=== PATIENT | female | born 1950 | race Caucasian/White ===

== ENCOUNTER 2024-08-04 07:45 | Day surgery (SDC) | payer MEDICARE, OTHER, SELFPAY ==
--- OUTSIDE RECORDS SUMMARY | 2024-07-14 11:43 | XMS_ITS | Encounter Summary ---
Author Organization [facility] Address [address] [facility] [address] [place] [address] Phone Care Team Providers Care Bronze Plater Name Role Phone Thais Wiggins MD, PhD Unavailable [phone] Lucia Canchola MD Unavailable [phone] Self-Referred, Patient Unavailable Unavailab Barak Torres DO Primary Care Provider [phone] Link Osorio MD Unavailable [phone] Marycarmen Samaniego RN Unavailable Catherine [email or web address] Self-Referred, Patient Unavailable Unavailab Danielle Rivas RN Unavailable [email or web address] Barak Hunt DO Primary Care Provider [phone] Geovany Ortez MD Primary Care Provid er Encounter Details Date Type Department Care Team (Late st Contact Info) Description 04/21/2019 Prep for Surgery [place] [facility] 20 [facility] [address] [place] [address] Olivia Schroeder PA-C [address] [phone] [email or web address] Left inguinal hernia (Primary Dx) Social History Tobacco Use Types Packs/Day Years Used Date Smoking Tobacco: Former Cigarettes 1 30 0 02/25/1977 - 02/25/2007 Smokeless Tobacco: Never Alcohol Use Standard Drinks/Week Comments No 0 (1 standard drink = 0.6 oz pur e alcohol) Comments Unknown Sex and Gender Information Value Date Recorded Sex Assigned at Female 08/21/2017 6:55 AM EDT Legal Sex Female 2:32 PM EDT Gender Identity Female 08/21/2017 6:55 AM EDT Sexual Orientation Straight 08/21/2017 6: 55 AM EDT 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, 7th Floor, [address] [place] [address] Mariana Ceballos MD [address] [place] [address] [email or web address] Link Osorio MD 10 [facility] [place] [address] TORY@[email or web address] 06/29/2025 10:00 AM EDT Office Visit [facility] Endocrinology [address] [phone] Zari Genao MD [address] [facility] 3rd [place] [address] [email or web address] documented as of this encounter Visit Diagnoses Diagnosis Left inguinal hernia- Primary Inguinal hernia without mention of obstruction or gangrene, unilateral or unspecified, (not specified as recurrent) documented in this encounter Additional Health Concerns Infection Onset Date Last Indicated Resolved Time CoV-Risk 11/05/2020 11/05/2020 11/15/2020 1:22 AM EDT CoV-Exposed Comment:Recent close contact documented in the COVID-19 PCR/PRO order 09/09/2021 09/09/2021 09/20/2021 1:22 AM E DT CoV-Risk 11/17/2021 11/17/2021 11/17/2021 10:4 1 AM EDT COVID-19 11/17/2021 11/17/2021 12/08/2021 1:21 AM EDT CoV-Risk Comment:Per note documentation 07/24/2022 07/24/2022 8:24 AM EDT documented as of this encounter Care Teams Bronze Plater Relationship Specialty Start Date End Date Barak Hunt DO 22 [place] [address] @[facility] [place] PCP - General Family Medicine 02/10/18 10/22/23 Barak Hunt DO 22 [place] [address] [email or web address] PCP - General Family Medicine 10/23/23 06/28/24 Geovany Ortez MD [address] [place] [phone] PCP - General Internal Medicine 06/29/24 Thais Wiggins MD, PhD [email or web address]. [place] Thoracic Surgery 09/25/17 Lucia Canchola MD [address] [place] [address] [email or web address] Hematology and Oncology 09/25/17 12/04/21 Self-Referred, Patient 09/26/17 Link Osorio MD [address] [place] [address] [email or web address] Primary Oncologist Medical Oncology 01/24/22 Marycarmen Samaniego, ANDREW [address] [place] [address] [email or web address] Primary Infusion Nurse 01/24/22 12/18/22 Self-Referred, Patient 03/16/22 12/18/22 Danielle Gallegos RN [address] [place] [address] [email or web address] Primary Infusion Nurse 05/18/22 documented as of this encounter Additional Source Comments The information contained in this document represents components of the legal health record. It is not the complete legal health record.[facility]
--- OUTSIDE RECORDS SUMMARY | 2024-07-14 11:43 | XMS_ITS | Encounter Summary ---
Author Organization [facility] Address [address] [place] [address] Phone Care Team Providers Care Supervisor Color Making Name Role Phone Thais Wiggins MD, PhD Unavailable [phone] Self-Referred, Patient Unavailable Unavailab Barak Torres DO Primary Care Provider [phone] Link Osorio MD Unavailable [phone] Danielle Gallegos RN Unavailable [email or web address] Barak Hunt DO Primary Care Provider [phone] Geovany Ortez MD Primary Care Provid er Encounter Details Date Type Department Care Team (Late st Contact Info) Description 05/30/2023 Transcribe Orders [facility] Endocrinology [address] [place] [address] [place] [phone] Ana Luisa Mar MD [address] [place] [address] victor [email or web address] Social History Tobacco Use Types Packs/Day Years Used Date Smoking Tobacco: Former Cigarettes 1 20 0 02/25/1987 - 02/25/2007 Smokeless Tobacco: Never Alcohol Use Standard Drinks/Week Comments No 0 (1 standard drink = 0.6 oz pur e alcohol) Education Answer Date Recorded Are you interested in more education? Not on fabian e 06/22/2022 Are you concerned about learning? Not on file 06/22/2022 No 06/22/2022 No 06/22/2022 Digital Access Answer Date Recorded No 07/20/2022 No 07/20/2022 Reliable internet access at home? Not on file 07/20/2022 Device with a working camera? 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 Not on file Not on file documented as of this encounter Plan of Treatment Upcoming Encounters Date Type Department Care Team (Late st Contact Info) Description 07/09/2024 Procedure Pass [address] [address] 11/03/2024 10:30 AM EDT Appointment [address] [address] Mariana Ceballos MD [address] [place] [address] [email or web address] 11/19/2024 10:00 AM EDT Office [facility] [address] [place] [address], 7th Floor, [address] [place] [address] Mariana Ceballos MD [address] [place] [address] [email or web address] Link Osorio MD [address] [place] [address] [facility] [place] [address] TORY@[email or web address] 06/29/2025 10:00 AM EDT Office Visit [facility] Endocrinology [address] [address] Zari Genao MD [address] [address] [email or web address] documented as of this encounter Visit Diagnoses Not on filedocumented in this encounter Care Teams Supervisor Color Making Relationship Specialty Start Date End Date Barak Hunt DO 22 [place] [address] [email or web address] PCP - General Family Medicine 02/10/18 10/22/23 Barak Hunt DO [address] [place] [address] [email or web address] PCP - General Family Medicine 10/23/23 06/28/24 Geovany Ortez MD [address] [place] [phone] PCP - General Internal Medicine 06/29/24 Thais Wiggins MD, PhD [email or web address] Thoracic Surgery 09/25/17 Self-Referred, Patient 09/26/17 Link Osorio MD [address] [place] [address] [facility]-[address] [place] [address] [email or web address].[facility] Primary Oncologist Medical Oncology 01/24/22 Danielle Gallegos, RN [address] [place] [address] [email or web address] Primary Infusion Nurse 05/18/22 documented as of this encounter Additional Source Comments The information contained in this document represents components of the legal health record. It is not the complete legal health record.[facility]
--- OUTSIDE RECORDS SUMMARY | 2024-07-14 11:43 | XMS_ITS | Encounter Summary ---
Author Organization [facility] Address [address] [place] [address] Phone Care Team Providers Care Clock Assembler Name Role Phone Thais Wiggins MD, PhD Unavailable [phone] Self-Referred, Patient Unavailable Unavailab Barak Torres DO Primary Care Provider [phone] Link Osorio MD Unavailable [phone] Danielle Gallegos RN Unavailable [email or web address] @[email or web address] Barak Hunt DO Primary Care Provider Geovany Ortez MD Primary Care Provid er Encounter Details Date Type Department Care Team (Late st Contact Info) Description 04/19/2023 Procedure Pass [facility], Ct Scan - [address] [address] Social History Tobacco Use Types Packs/Day Years [...] 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, 7th Floor, [address] [place] [address] Mariana Ceballos MD [address] [place] [address] [email or web address] Link Osorio MD 10 [facility]-[address] [place] [address] TORY@[email or web address] 06/29/2025 10:00 AM EDT Office Visit [facility] Endocrinology [address] [phone] Zari Genao MD 22 [facility] 3rd [place] [address] [email or web address] documented as of this encounter Visit Diagnoses Not on filedocumented in this encounter Care Teams Clock Assembler Relationship Specialty Start Date End Date Barak Hunt DO 22 [place] [address] [email or web address] PCP - General Family Medicine 02/10/18 10/22/23 Barak Hunt DO 22 [place] [address] [email or web address] PCP - General Family Medicine 10/23/23 06/28/24 Geovany Ortez MD [address] [place] [phone] PCP - General Internal Medicine 06/29/24 Thais Wiggins MD, PhD [email or web address]@[email or web address] Thoracic Surgery 09/25/17 Self-Referred, Patient 09/26/17 Link Osorio MD [address] [place] [address] [address] TORY@[email or web address] Primary Oncologist Medical Oncology 01/24/22 Danielle Gallegos, ANDREW [address] [place] [address] [email or web address] Primary Infusion Nurse 05/18/22 documented as of this encounter Additional Source Comments The information contained in this document represents components of the legal health record. It is not the complete legal health record.[facility]
--- OUTSIDE RECORDS SUMMARY | 2024-07-14 11:43 | XMS_ITS | Encounter Summary ---
Author Organization [facility] Address [address] [place] [address] Phone Care Team Providers Care Cost And Risk Analysis Manager Name Role Phone Thais Wiggins MD, PhD Unavailable [phone] Self-Referred, Patient Unavailable Unavailab Barak Torres DO Primary Care Provider [phone] Link Osorio MD Unavailable [phone] aMrycarmen Samaniego RN Unavailable Catherine [email or web address] Self-Referred, Patient Unavailable Unavailab Danielle Rivas RN Unavailable martin @[email or web address] Barak Hunt DO Primary Care Provider [phone] Geovany Ortez MD Primary Care Provid er Encounter Details Date Type Department Care Team (Late st Contact Info) Description 12/27/2021 Procedure Pass [facility] PERIOPER[facility]IVE DEPT [address] [place] [address] Social History Tobacco Use Types Packs/Day Years Used Date Smoking Tobacco: Former Cigarettes 1 20 0 02/25/1987 - 02/25/2007 Smokeless Tobacco: Never Alcohol Use Standard Drinks/Week Comments No 0 (1 standard drink = 0.6 oz pur e alcohol) Comments No Sex and Gender Information Value Date Recorded Sex Assigned at Female 08/21/2017 6:55 AM EDT Legal Sex Female 2:32 PM EDT Gender Identity Female 08/21/2017 6:55 AM EDT Sexual Orientation Straight 08/21/2017 6: 55 AM EDT 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 Not on file Not on file documented as of this encounter Plan of Treatment Upcoming Encounters Date Type Department Care Team (Late st Contact Info) Description 07/09/2024 Procedure Pass [facility], [address] [address] 11/03/2024 10:30 AM EDT Appointment [address] [address] Mariana Ceballos MD [address] [place] [address] [email or web address] 11/19/2024 10:00 AM EDT Office Visit [facility] for Thoracic Oncology [address] [place] [address], 7th Floor, [address] [place] [address] Mariana Ceballos MD [address] [place] [address] [email or web address] Link Osorio MD 10 [facility]-[address] [place] [address] TORY@[email or web address] 06/29/2025 10:00 AM EDT Office Visit [facility] Endocrinology [address] [phone] Zari Genao MD 22 [facility] 3rd [place] [address] [email or web address] documented as of this encounter Visit Diagnoses Not on filedocumented in this encounter Additional Health Concerns Infection Onset Date Last Indicated Resolved Time CoV-Risk Comment:Per note documentation 07/24/2022 07/24/2022 8:24 AM EDT documented as of this encounter Care Teams Cost And Risk Analysis Manager Relationship Specialty Start Date End Date Gilbert Barak DO Mily 22 [place] [address] [email or web address] PCP - General Family Medicine 02/10/18 10/22/23 Barak Hunt DO 22 [place] [address] [email or web address] PCP - General Family Medicine 10/23/23 06/28/24 Geovany Ortez MD [address] [place] [phone] PCP - General Internal Medicine 06/29/24 Thais Wiggins MD, PhD [email or web address]@[email or web address].[place] Thoracic Surgery 09/25/17 Self-Referred, Patient 09/26/17 Link Osorio MD [address] [place] [address] [address] TORY@[facility].[place] Primary Oncologist Medical Oncology 01/24/22 Marycarmen Samaniego, ANDREW [address] [place] [address] [address] [email or web address] [email or web address] Primary Infusion Nurse 01/24/22 12/18/22 Self-Referred, Patient 03/16/22 12/18/22 Danielle Gallegos, ANDREW [address] [place] [address] [email or web address] Primary Infusion Nurse 05/18/22 documented as of this encounter Additional Source Comments The information contained in this document represents components of the legal health record. It is not the complete legal health record.[facility]
--- OUTSIDE RECORDS SUMMARY | 2024-07-14 11:43 | XMS_ITS | Encounter Summary ---
Author Organization [facility] Address [address] [place] [address] Phone Care Team Providers Care Compensation Supervisor Name Role Phone Thais Wiggins MD, PhD Unavailable [phone] Self-Referred, Patient Unavailable Unavailab Barak Torres DO Primary Care Provider [phone] Link Osorio MD Unavailable [phone] Marycarmen Samaniego RN Unavailable Catherine [email or web address] Self-Referred, Patient Unavailable Unavailab Danielle Rivas RN Unavailable [email or web address] @[email or web address] Barak Hunt DO Primary Care Provider [phone] Geovany Ortez MD Primary Care Provid er Encounter Details Date Type Department Care Team (Late st Contact Info) Description 03/29/2022 Procedure Pass [facility], Ct Scan - [address] [address] Social History Tobacco Use Types Packs/Day Years [...] 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 Not on file Not on file documented as of this encounter Plan of Treatment Upcoming Encounters Date Type Department Care Team (Late st Contact Info) Description 07/09/2024 Procedure Pass [facility], [address] [address] 11/03/2024 10:30 AM EDT Appointment [address] [address] Mariana Ceballos MD [address] [place] [address] [address] [place] [address] [email or web address] 11/19/2024 10:00 AM EDT Office [place] [facility] Center for Thoracic Oncology [address] [place] [address], 7th Floor, [address] [place] [address] Mariana Ceballos MD [address] [place] [address] [email or web address] Link Osorio MD 10 [facility] Thor[facility] OncologyMIN[facility]-[address] [place] [address] TORY@[facility] 06/29/2025 10:00 AM EDT Office Visit [facility] Endocrinology [place] [address] [place] [address] Zari Genao MD 22 [facility] 3rd [place] [address] [email or web address] documented as of this encounter Visit Diagnoses Not on filedocumented in this encounter Additional Health Concerns Infection Onset Date Last Indicated Resolved Time CoV-Risk Comment:Per note documentation 07/24/2022 07/24/2022 8:24 AM EDT documented as of this encounter Care Teams Compensation Supervisor Relationship Specialty Start Date End Date Barak Hunt DO 22 [place] [address] @[email or web address] PCP - General Family Medicine 02/10/18 10/22/23 Barak Hunt DO 22 [place] [address] @[facility] PCP - General Family Medicine 10/23/23 06/28/24 Geovany Ortez MD [address] [place] [phone] PCP - General Internal Medicine 06/29/24 Thais Wiggins MD, PhD [email or web address] Thoracic Surgery 09/25/17 Self-Referred, Patient 09/26/17 Link Osorio MD [address] [place] [address] [address] TORY@[facility] Primary Oncologist Medical Oncology 01/24/22 Marycarmen Samaniego, RN [address] [place] [address] [address] [email or web address] [place] Primary Infusion Nurse 01/24/22 12/18/22 Self-Referred, Patient 03/16/22 12/18/22 Danielle Gallegos, ANDREW [address] [place] [address] [email or web address] Primary Infusion Nurse 05/18/22 documented as of this encounter Additional Source Comments The information contained in this document represents components of the legal health record. It is not the complete legal health record.[facility]
--- OUTSIDE RECORDS SUMMARY | 2024-07-14 11:43 | XMS_ITS | Encounter Summary ---
Author Organization [facility] Address [address] [place] [address] Phone Care Team Providers Care Cloth Worker Name Role Phone Thais Wiggins MD, PhD Unavailable [phone] Self-Referred, Patient Unavailable Unavailab Barak Torres DO Primary Care Provider [phone] Link Osorio MD Unavailable [phone] Marycarmen Samaniego RN Unavailable [email or web address].[place] Self-Referred, Patient Unavailable Unavailab Danielle Rivas RN Unavailable [email or web address] Barak Hunt DO Primary Care Provider [phone] Geovany Ortez MD Primary Care Provid er Encounter Details Date Type Department Care Team (Late st Contact Info) Description 12/17/2022 Ancillary Orders [facility],Outside Imaging [address] [place] [address] System, Provider Not In, PhD Partners [address] [address] Social History Tobacco Use Types Packs/Day Years [...] 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 Not on file Not on file documented as of this encounter Plan of Treatment Upcoming Encounters Date Type Department Care Team (Late st Contact Info) Description 07/09/2024 Procedure Pass [address] [address] 11/03/2024 10:30 AM EDT Appointment [address] [address] Mariana Ceballos MD [address] [place] [address] [email or web address] 11/19/2024 10:00 AM EDT Office Visit [facility] [address] [place] [address], 7th Floor, [address] [place] [address] Mariana Ceballos MD [address] [place] [address] [email or web address] Link Osorio MD 10 [facility] [place] [address] [email or web address] 06/29/2025 10:00 AM EDT Office Visit [facility] Endocrinology [address] [address] Zari Genao MD [address] [place] [address] 3[address] [place] [address] [email or web address] documented as of this encounter Results * DXA Outside (No Interpretation) (04/10/2018 12:00 AM EST) Narrative SYSTEMGENERATED, DOCUMENTATION - 12/17/2022 4:50 PM EDT This study is for PACS storage only and not for interpretation. us Provider Not In System PhD IMG OUTSIDE IMAGING W /OUT INTERPRETATION Final Result documented in this encounter Visit Diagnoses Not on filedocumented in this encounter Care Teams Cloth Worker Relationship Specialty Start Date End Date Barak Hunt DO [address] [place] [address] [email or web address] PCP - General Family Medicine 02/10/18 10/22/23 Barak Hunt DO [address] [place] [address] [email or web address] PCP - General Family Medicine 10/23/23 06/28/24 Geovany Ortez MD [address] [place] [phone] PCP - General Internal Medicine 06/29/24 Thais Wiggins MD, PhD [email or web address] Thoracic Surgery 09/25/17 Self-Referred, Patient 09/26/17 Link Osorio MD [address] [place] [address] [facility]-[address] [place] [address] [email or web address].[email or web address] Primary Oncologist Medical Oncology 01/24/22 Marycarmen Samaniego, RN 10 [facility] Thoracic Oncology[address] [address] [email or web address].[place]. [place] Primary Infusion Nurse 01/24/22 12/18/22 Self-Referred, Patient 03/16/22 12/18/22 Danielle Galleogs RN [address] [place] [address] [email or web address] Primary Infusion Nurse 05/18/22 documented as of this encounter Additional Source Comments The information contained in this document represents components of the legal health record. It is not the complete legal health record.[facility]
--- OUTSIDE RECORDS SUMMARY | 2024-07-14 11:44 | XMS_ITS | Encounter Summary ---
Author Organization [facility] Address [address] [place] [address] Phone Care Team Providers Care Marketing Services Rep Name Role Phone Thais Wiggins MD, PhD Unavailable [phone] Self-Referred, Patient Unavailable Unavailab Barak Torres DO Primary Care Provider [phone] Link Osorio MD Unavailable [phone] Marycarmen Samaniego RN Unavailable Catherine [email or web address] Self-Referred, Patient Unavailable Unavailab Danielle Rivas RN Unavailable [email or web address] Barak Hunt DO Primary Care Provider [phone] Geovany Ortez MD Primary Care Provid er Encounter Details Date Type Department Care Team (Late st Contact Info) Description 01/24/2022 Procedure Pass [facility] [address] [place] [address] Social History Tobacco Use Types Packs/Day Years [...] 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 Not on file Not on file documented as of this encounter Plan of Treatment Upcoming Encounters Date Type Department Care Team (Late st Contact Info) Description 07/09/2024 Procedure Pass [facility], [address] [address] 11/03/2024 10:30 AM EDT Appointment [address] [address] Mariana Ceballos MD [address] [place] [address] [email or web address] 11/19/2024 10:00 AM EDT Office Visit [facility] [address] [place] [address], 7th Floor, [address] [place] [address] Mariana Ceballos MD [address] [place] [address] [email or web address] Link Osorio MD 10 [facility]-[address] [place] [address] TORY@[email or web address] 06/29/2025 10:00 AM EDT Office Visit [facility] Endocrinology [address] [phone] Zari Genao MD 22 [facility] 3rd [place] [address] [email or web address] documented as of this encounter Visit Diagnoses Not on filedocumented in this encounter Additional Health Concerns Infection Onset Date Last Indicated Resolved Time CoV-Risk Comment:Per note documentation 07/24/2022 07/24/2022 8:24 AM EDT documented as of this encounter Care Teams Marketing Services Rep Relationship Specialty Start Date End Date Gilbert Barak DO Mily [address] [place] [address] [email or web address] PCP - General Family Medicine 02/10/18 10/22/23 Barak Hunt DO [address] [place] [address] [email or web address] PCP - General Family Medicine 10/23/23 06/28/24 Geovany Ortez MD [address] [place] [phone] PCP - General Internal Medicine 06/29/24 Thais Wiggins MD, PhD [email or web address]@[email or web address] Thoracic Surgery 09/25/17 Self-Referred, Patient 09/26/17 Link Osorio MD [address] [place] [address] [address] TORY@[facility].[facility] Primary Oncologist Medical Oncology 01/24/22 Marycarmen Samaniego, ANDREW [address] [place] [address] [address] [email or web address]. [place] Primary Infusion Nurse 01/24/22 12/18/22 Self-Referred, Patient 03/16/22 12/18/22 Danielle Gallegos, ANDREW [address] [place] [address] [email or web address] Primary Infusion Nurse 05/18/22 documented as of this encounter Additional Source Comments The information contained in this document represents components of the legal health record. It is not the complete legal health record.[facility]
--- OUTSIDE RECORDS SUMMARY | 2024-07-14 11:44 | XMS_ITS | Encounter Summary ---
Author Organization [facility] Address [address] [place] [address] Phone Care Team Providers Care Solid Waste Collection Worker Name Role Phone Jan Das MD Unavailable [phone] Thais Wiggins MD, PhD Unavailable [phone] Lucia Canchola MD Unavailable [phone] Self-Referred, Patient Unavailable Unavailab Barak Torres DO Primary Care Provider [phone] Link Osorio MD Unavailable [phone] Marycarmen Samaniego RN Unavailable Catherine [email or web address] Self-Referred, Patient Unavailable Unavailab Danielle Rivas RN Unavailable [email or web address] Barak Hunt DO Primary Care Provider Geovany Ortez MD Primary Care Provid er Encounter Details Date Type Department Care Team (Late st Contact Info) Description 08/16/2017 Procedure Pass [facility] [address] [place] [address] Social History Tobacco Use Types Packs/Day Years Used Date Smoking Tobacco: Never Assessed Comments Unknown Sex and Gender Information Value Date Recorded Sex Assigned at Female 08/21/2017 6:55 AM EDT Legal Sex Female 2:32 PM EDT Gender Identity Female 08/21/2017 6:55 AM EDT Sexual Orientation Straight 08/21/2017 6: 55 AM EDT documented as of this encounter Plan of Treatment Upcoming Encounters Date Type Department Care Team (Late st Contact Info) Description 07/09/2024 Procedure Pass [facility], [address] [address] 11/03/2024 10:30 AM EDT Appointment [address] [address] Mariana Ceballos MD [address] [place] [address] [email or web address] 11/19/2024 10:00 AM EDT Office Visit [facility] for Thoracic Oncology [address] [place] [address], 7th Floor, [address] [place] [address] Mariana Ceballos MD [address] [place] [address] [email or web address] Link Osorio MD 10 [facility] [place] [address] [email or web address] 06/29/2025 10:00 AM EDT Office Visit [facility] Endocrinology [address] [address] Zari Genao MD [address] [place] [address] 3[address] [place] [address] [email or web address] documented as of this [...] documented as of this encounter Care Teams Solid Waste Collection Worker Relationship Specialty Start Date End Date Barak Hunt DO [address] [place] [address] [email or web address] PCP - General Family Medicine 02/10/18 10/22/23 Barak Hunt DO 22 [place] [address] @[email or web address] PCP - General Family Medicine 10/23/23 06/28/24 Geovany Ortez MD [address] [place] [phone] PCP - General Internal Medicine 06/29/24 Jan Das MD [address] [place] [address] [email or web address] Thoracic Surgery 08/13/17 09/24/17 Thais Wiggins MD, PhD [address] [place] [address] [email or web address]. [facility] Thoracic Surgery 09/25/17 Lucia Canchola MD [address] [place] [address] [email or web address] Hematology and Oncology 09/25/17 12/04/21 Self-Referred, Patient 09/26/17 Link Osorio MD [address] [place], [place] [phone] [email or web address] Primary Oncologist Medical Oncology 01/24/22 Marycarmen Samaniego, RN [address] [place], [place] [phone] [email or web address] Primary Infusion Nurse 01/24/22 12/18/22 Self-Referred, Patient 03/16/22 12/18/22 Danielle Gallegos, RN [address] [place], [place] [phone] [email or web address] Primary Infusion Nurse 05/18/22 documented as of this encounter Additional Source Comments The information contained in this document represents components of the legal health record. It is not the complete legal health record.[facility]
--- OUTSIDE RECORDS SUMMARY | 2024-07-14 11:44 | XMS_ITS | Encounter Summary ---
Author Organization [facility] Address [address] [place] [address] [place] [address] Phone Care Team Providers Care Nail Polish Brush Machine Feeder Name Role Phone Thais Wiggins MD, PhD Unavailable [phone] Self-Referred, Patient Unavailable Unavailab Barak Torres DO Primary Care Provider [phone] Link Osorio MD Unavailable [phone] Marycarmen Samaniego RN Unavailable Catherine [email or web address] Self-Referred, Patient Unavailable Unavailab Danielle Rivas RN Unavailable [email or web address] Barak Hunt DO Primary Care Provider [phone] Geovany Ortez MD Primary Care Provid er Reason for Visit * Reason Comments Medication Refill Encounter Details Date Type Department Care Team (Late st Contact Info) Description 04/13/2022 Refill [facility] 32 [facility], 7th Floor, [address] [place] [address] Janine Quinones, CLINICAL DATA MANAGEMENT DIRECTOR [address] [place] [address] [email or web address] Medication Refill Social History Tobacco Use Types Packs/Day Years [...] 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 Not on file Not on file documented as of this encounter Plan of Treatment Upcoming Encounters Date Type Department Care Team (Late st Contact Info) Description 07/09/2024 Procedure Pass [address] [address] 11/03/2024 10:30 AM EDT Appointment [address] [address] Mariana Ceballos MD [address] [place] [address] [email or web address] 11/19/2024 10:00 AM EDT Office Visit [facility] [address] [place] [address], 7th Floor, [address] [place] [address] Mariana Ceballos MD [address] [place] [address] [email or web address] Link Osorio MD [address] [place] [address] [facility] [place] [address] [email or web address] 06/29/2025 10:00 AM EDT Office Visit [facility] Endocrinology [address] [address] Zari Genao MD [address] [place] [address] [address] [place] [address] [email or web address] documented as of this encounter Visit Diagnoses Diagnosis Non-small cell lung cancer, unspecified laterality documented in this encounter Additional Health Concerns Infection Onset Date Last Indicated Resolved Time CoV-Risk Comment:Per note documentation 07/24/2022 07/24/2022 8:24 AM EDT documented as of this encounter Care Teams Nail Polish Brush Machine Feeder Relationship Specialty Start Date End Date Barak Hunt DO [address] [place] [address] [email or web address] PCP - General Family Medicine 02/10/18 10/22/23 Barak Hunt DO [address] [place] [address] @[email or web address] PCP - General Family Medicine 10/23/23 06/28/24 Geovany Ortez MD [address] [place] [phone] PCP - General Internal Medicine 06/29/24 Thais Wiggins MD, PhD [email or web address] Thoracic Surgery 09/25/17 Self-Referred, Patient 09/26/17 Link Osorio MD [address] [place] [address] [email or web address] Primary Oncologist Medical Oncology 01/24/22 Marycarmen Samaniego, ANDREW [address] [place] [address] [email or web address].[place].[facility] Primary Infusion Nurse 01/24/22 12/18/22 Self-Referred, Patient 03/16/22 12/18/22 Danielle Gallegos, RN [address] [place] [address] [email or web address] Primary Infusion Nurse 05/18/22 documented as of this encounter Additional Source Comments The information contained in this document represents components of the legal health record. It is not the complete legal health record.[facility]
--- OUTSIDE RECORDS SUMMARY | 2024-07-14 11:44 | XMS_ITS | Encounter Summary ---
Author Organization [facility] Address [address] [place] [address] Phone Care Team Providers Care Block Sealer Name Role Phone Thais Wiggins MD, PhD Unavailable [phone] Self-Referred, Patient Unavailable Unavailab Barak Torres DO Primary Care Provider [phone] Link Osorio MD Unavailable [phone] Marycarmen Samaniego RN Unavailable Catherine 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 Not on file Not on file documented as of this encounter Plan of Treatment Upcoming Encounters Date Type Department Care Team (Late st Contact Info) Description 07/09/2024 Procedure Pass [facility], [address] [address] 11/03/2024 10:30 AM EDT Appointment [address] [address] Mariana Ceballos MD [address] [place] [address] [email or web address] 11/19/2024 10:00 AM EDT Office Visit [facility] Center for Thoracic Oncology [address] [place] [address], 7th Floor, [address] [place] [address] Mariana Ceballos MD [address] [place] [address] [email or web address] Link Osorio MD 10 [facility]-[address] [place] [address] [email or web address] 06/29/2025 10:00 AM EDT Office Visit [facility] Endocrinology [address] [phone] Zari Genao MD 22 [facility] 3rd [place] [address] [email or web address] documented as of this encounter Visit Diagnoses Not on filedocumented in this encounter Additional Health Concerns Infection Onset Date Last Indicated Resolved Time CoV-Risk Comment:Per note documentation 07/24/2022 07/24/2022 8:24 AM EDT documented as of this encounter Care Teams Block Sealer Relationship Specialty Start Date End Date Gilbert Barak DO Mily [address] [place] [address] [email or web address] PCP - General Family Medicine 02/10/18 10/22/23 Barak Hunt DO [address] [place] [address] [email or web address] PCP - General Family Medicine 10/23/23 06/28/24 Geovany Ortez MD [address] [place] [phone] PCP - General Internal Medicine 06/29/24 Thais Wiggins MD, PhD [email or web address] Thoracic Surgery 09/25/17 Self-Referred, Patient 09/26/17 Link Osorio MD [address] [place] [address] [address] TORY@[facility] Primary Oncologist Medical Oncology 01/24/22 Marycarmen Samaniego, ANDREW [address] [place] [address] [address] [email or web address].[place]. [place] Primary Infusion Nurse 01/24/22 12/18/22 Self-Referred, Patient 03/16/22 12/18/22 Danielle Gallegos, ANDREW [address] [place] [address] [email or web address] Primary Infusion Nurse 05/18/22 documented as of this encounter Additional Source Comments The information contained in this document represents components of the legal health record. It is not the complete legal health record.[facility]
--- OUTSIDE RECORDS SUMMARY | 2024-07-14 11:44 | XMS_ITS | Encounter Summary ---
Author Organization [facility] Address [address] [place] [address] Phone Care Team Providers Care Supply Chain Director Name Role Phone Thais Wiggins MD, PhD Unavailable [phone] Lucia Canchola MD Unavailable [phone] Self-Referred, Patient Unavailable Unavailab Barak Torres DO Primary Care Provider [phone] Link Osorio MD Unavailable [phone] Marycarmen Samaniego RN Unavailable Catherine [email or web address] Self-Referred, Patient Unavailable Unavailab Danielle Rivas RN Unavailable [email or web address] Barak Hunt DO Primary Care Provider [phone] Geovany Ortez MD Primary Care Provid er Encounter Details Date Type Department Care Team (Late st Contact Info) Description 11/05/2020 Procedure Pass [facility] [address] [place] [address] Social History Tobacco Use Types Packs/Day Years [...] Start Date Job 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 Wish to be (Past 1 Month) No 11/05/2020 12:27 PM EDT Pilar Granados, ANDREW 2. Non-Specific Active Suicidal Thoughts (Past 1 Month) No 11/05/2020 12:27 PM EDT Pilar Granados RN 6. Suicidal Behavior (Lifetime) No 11/05/2020 12:27 PM EDT Pilar Granados RN documented as of this encounter Plan of Treatment Upcoming Encounters Date Type Department Care Team (Late st Contact Info) Description 07/09/2024 Procedure Pass [address] [address] 11/03/2024 10:30 AM EDT Appointment [address] [address] Mariana Ceballos MD [address] [place] [address] [email or web address] 11/19/2024 10:00 AM EDT Office Visit [facility] [address] [place] [address], 7th Floor, [address] [place] [address] Mariana Ceballos MD [address] [place] [address] [email or web address] Link Osorio MD 10 [facility] [place] [address] [email or web address] [email or web address] 06/29/2025 10:00 AM EDT Office Visit [facility] Endocrinology [address] [phone] Zari Genao MD [address] [address] [email or web address] documented as of this encounter Visit Diagnoses [...] documented as of this encounter Care Teams Supply Chain Director Relationship Specialty Start Date End Date Barak Hunt DO 22 [place] [address] [email or web address] PCP - General Family Medicine 02/10/18 10/22/23 Barak Hunt DO 22 [place] [address] [email or web address] PCP - General Family Medicine 10/23/23 06/28/24 Geovany Ortez MD [address] [place] [phone] PCP - General Internal Medicine 06/29/24 Thais Wiggins MD, PhD [email or web address] Thoracic Surgery 09/25/17 Lucia Canchola MD [address] [place] [address] [email or web address] Hematology and Oncology 09/25/17 12/04/21 Self-Referred, Patient 09/26/17 Link Osorio MD [address] [place] [address] [email or web address] Primary Oncologist Medical Oncology 01/24/22 Marycarmen Samaniego, RN [address] [place] [address] [email or web address] Primary Infusion Nurse 01/24/22 12/18/22 Self-Referred, Patient 03/16/22 12/18/22 Danielle Gallegos, RN [address] [place] [address] [email or web address] Primary Infusion Nurse 05/18/22 documented as of this encounter Additional Source Comments The information contained in this document represents components of the legal health record. It is not the complete legal health record.[facility]
--- OUTSIDE RECORDS SUMMARY | 2024-07-14 11:44 | XMS_ITS | Encounter Summary ---
Author Organization [facility] Address [address] [place] [address] Phone Care Team Providers Care Transporter Driver Name Role Phone Thais Wiggins MD, PhD Unavailable [phone] Lucia Canchola MD Unavailable [phone] Self-Referred, Patient Unavailable Unavailab Barak Torres DO Primary Care Provider [phone] Link Osorio MD Unavailable [phone] Marycarmen Samaniego RN Unavailable 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 Not on file Not on file documented as of this encounter Plan of Treatment Upcoming Encounters Date Type Department Care Team (Late st Contact Info) Description 07/09/2024 Procedure Pass [facility], [facility] [address] [place] [address] 11/03/2024 10:30 AM EDT Appointment [address] [address] Mariana Ceballos MD [address] [place] [address] [email or web address] 11/19/2024 10:00 AM EDT Office Visit [facility] Oncology [address] [place] [address], 7th Floor, [address] [place] [address] Mariana Ceballos MD [address] [place] [address] [email or web address] Link Osorio MD 10 [facility] [place] [address] [email or web address] 06/29/2025 10:00 AM EDT Office Visit [facility] Endocrinology [place] [address] [place] [phone] Zari Genao MD 22 [facility] [address] [place] [address] [email or web address] documented as of this encounter Visit Diagnoses Not on filedocumented in this encounter Additional Health Concerns Infection Onset Date Last Indicated Resolved Time CoV-Risk 11/05/2020 11/05/202011/1511/15/2020 1:22 AM EDT CoV-Exposed Comment:Recent close contact documented in the COVID-19 PCR/PRO order 09/09/2021 09/09/2021 09/20/2021 1:22 AM E DT CoV-Risk 11/17/2021 11/17/2021 11/17/2021 10:4 1 AM EDT COVID-19 11/17/2021 11/17/2021 12/08/2021 1:21 AM EDT CoV-Risk Comment:Per note documentation 07/24/2022 07/24/2022 8:24 AM EDT documented as of this encounter Care Teams Transporter Driver Relationship Specialty Start Date End Date Barak Hunt DO [address] [place] [address] [email or web address] PCP - General Family Medicine 02/10/18 10/22/23 Barak Hunt DO [address] [place] [address] [email or web address] PCP - General Family Medicine 10/23/23 06/28/24 Geovany Ortez MD [address] [place] [phone] PCP - General Internal Medicine 06/29/24 Thais Wiggins MD, PhD [email or web address] DU Thoracic Surgery 09/25/17 Lucia Canchola MD [address] [place] [address] [email or web address] Hematology and Oncology 09/25/17 12/04/21 Self-Referred, Patient 09/26/17 Link Osorio MD [address] [place] [address] [address] [email or web address] Primary Oncologist Medical Oncology 01/24/22 Marycarmen Samaniego, ANDREW [address] [place] [address] [address] [email or web address] Primary Infusion Nurse 01/24/22 12/18/22 Self-Referred, Patient 03/16/22 12/18/22 Danielle Gallegos RN [address] [place] [address] [email or web address] Primary Infusion Nurse 05/18/22 documented as of this encounter Additional Source Comments The information contained in this document represents components of the legal health record. It is not the complete legal health record.[facility]
--- OUTSIDE RECORDS SUMMARY | 2024-07-14 11:44 | XMS_ITS | Encounter Summary ---
Author Organization [facility] Address [address] [place] [address] Phone Care Team Providers Care Information Security Consultant Name Role Phone Thais Wiggins MD, PhD Unavailable [phone] Lucia Canchola MD Unavailable [phone] Self-Referred, Patient Unavailable Unavailab Barak Torres DO Primary Care Provider [phone] Link Osorio MD Unavailable [phone] Marycarmen Samaniego RN Unavailable [email or web address] [email or web address] [email or web address] Self-Referred, Patient Unavailable Unavailab Danielle Rivas RN Unavailable [email or web address] Barak Hunt DO Primary Care Provider [phone] Geovany Ortez MD Primary Care Provid er Encounter Details Date Type Department Care Team (Late st Contact Info) Description 08/29/2019 Procedure Pass [facility], Ct Scan - [facility] [address] [place] [address] Social History Tobacco Use Types Packs/Day Years [...] 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 Center for Thoracic Oncology [address] [place] [address], 7th Floor, [address] [place] [address] Mariana Ceballos MD [address] [place] [address] [email or web address] Link Osorio MD [address] [place] [address] [facility]acic [facility]cology[facility]-[address] [place] [address] [email or web address] 06/29/2025 10:00 AM EDT Office Visit [facility] Endocrinology [place] [address] [place] [phone] Zari Genao MD 22 [facility] 3rd [place] [address] [email or web address] documented as of this encounter Visit Diagnoses Not on filedocumented in this encounter Additional Health Concerns Infection Onset Date Last Indicated Resolved Time CoV-Risk 11/05/2020 11/05/202011/15/2020 1:22 AM EDT CoV-Exposed Comment:Recent close contact documented in the COVID-19 PCR/PRO order 09/09/2021 09/09/2021 09/20/2021 1:22 AM E DT CoV-Risk 11/17/2021 11/17/2021 11/17/2021 10:4 1 AM EDT COVID-19 11/17/2021 11/17/2021 12/08/2021 1:21 AM EDT CoV-Risk Comment:Per note documentation 07/24/2022 07/24/2022 8:24 AM EDT documented as of this encounter Care Teams Information Security Consultant Relationship Specialty Start Date End Date Barak Hunt DO [address] [place] [address] @[email or web address] PCP - General Family Medicine 02/10/18 10/22/23 Barak Hunt DO [address] [place] [address] [email or web address] PCP - General Family Medicine 10/23/23 06/28/24 Geovany Ortez MD [address] [place] [phone] PCP - General Internal Medicine 06/29/24 Thais Wiggins MD, PhD [email or web address] DU Thoracic Surgery 09/25/17 Lucia Canchola MD [address] [place] [address] [email or web address] Hematology and Oncology 09/25/17 12/04/21 Self-Referred, Patient 09/26/17 Link Osorio MD [address] [place] [address] [address] [email or web address] Primary Oncologist Medical Oncology 01/24/22 Marycarmen Samaniego, ANDREW [address] [place] [address] [address] [email or web address] Primary Infusion Nurse 01/24/22 12/18/22 Self-Referred, Patient 03/16/22 12/18/22 Danielle Gallegos, ANDREW [address] [place] [address] [email or web address] Primary Infusion Nurse 05/18/22 documented as of this encounter Additional Source Comments The information contained in this document represents components of the legal health record. It is not the complete legal health record.[facility]
--- OUTSIDE RECORDS SUMMARY | 2024-07-14 11:45 | XMS_ITS | Encounter Summary ---
Author Organization [facility] Address [address] [place] [address] Phone Care Team Providers Care Commission Agent Livestock Name Role Phone Thais Wiggins MD, PhD Unavailable [phone] Self-Referred, Patient Unavailable Unavailab Barak Torres DO Primary Care Provider [phone] Link Osorio MD Unavailable [phone] Danielle Gallegos RN Unavailable 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 on file Not on file documented as of this encounter Plan of Treatment Upcoming Encounters Date Type Department Care Team (Late st Contact Info) Description 07/09/2024 Procedure Pass [facility], [address] [address] 11/03/2024 10:30 AM EDT Appointment [address] [address] Mariana Ceballos MD [address] [place] [address] [email or web address] 11/19/2024 10:00 AM EDT Office Visit [facility] Center for Thoracic Oncology 32 [facility], 7th Floor, [address] [place] [address] Mariana Ceballos MD [address] [place] [address] [email or web address] Link Osorio MD 10 [facility]304 [place] [address] [email or web address] 06/29/2025 10:00 AM EDT Office Visit [facility] Endocrinology [address] [phone] Zari Genao MD 22 [facility] 3rd [place] [address] [email or web address] documented as of this encounter Visit Diagnoses Not on filedocumented in this encounter Care Teams Commission Agent Livestock Relationship Specialty Start Date End Date Barak Hunt DO 22 [place] [address] [email or web address] PCP - General Family Medicine 02/10/18 10/22/23 Barak Hunt DO 22 [place] [address] [email or web address] PCP - General Family Medicine 10/23/23 06/28/24 Geovany Ortez MD [address] [place] [phone] PCP - General Internal Medicine 06/29/24 Thais Wiggins MD, PhD [email or web address].[email or web address] Thoracic Surgery 09/25/17 Self-Referred, Patient 09/26/17 Link Osorio MD [address] [place] [address] [address] [email or web address].[place].[email or web address] Primary Oncologist Medical Oncology 01/24/22 Danielle Gallegos, ANDREW [address] [place] [address] [email or web address] Primary Infusion Nurse 05/18/22 documented as of this encounter Additional Source Comments The information contained in this document represents components of the legal health record. It is not the complete legal health record.[facility]
--- OUTSIDE RECORDS SUMMARY | 2024-07-14 11:45 | XMS_ITS | Patient Health Record ---
Author Organization [facility] Address [address] [place] [phone] Care Team Providers Care Furniture Inspector Name Role Phone Geovany Ortez Primary Care Provider Darvin Latif Jr Unavailable Allergies Allergen (clinical drug ingredient) Drug/Non Drug Allergy documented on EMR Reaction Allergy Type Onset Date Status Substance with sulfonamide structure and antibacterial mechanism of action (substance) Sulfa Antibiotics Unknown Drug Allergy Active lisinopril Lisinopril Unknown Drug Allergy Activ e MiraLax Unknown Drug Allergy Active Reason For Referral No Information Medications Medication SIG (Take, Route, Frequency, Duration) Notes Start Date End Date Status ProAir RespiClick 108 (90 Base) MCG/ACT 1 puff as needed Inhalation every 4 hrs 07/06/2024 Active hydroCHLOROthiazide 12.5 MG 1 capsule in the morning Orally Once a day for 30 day(s) 07/06/2024 Active Levothyroxine Sodium 75 MCG 1 tablet in the morning on an empty stomach Orally Once a day for 30 day(s) 07/06/2024 Active Bacillus Coagulans-Inulin - as directed Orally 01/2025 Active Fluticasone Propionate 50 MCG/ACT 1 spray in each nostril Nasally Twice a day for 30 day(s) 07/06/2024 Active Atorvastatin Calcium 10 MG 1 tablet Oral ly Once a day for 30 day(s) 07/06/2024 Active Sutab 2617-963-121 MG [address] dose the evening before and second dose the morning of colonoscopy Orally Twice a day for 1 days 07/06/2024 Active Tretinoin 0.025 % 1 application in the evening to face Externally Once a day 07/06/2024 Active valACYclovir HCl 500 MG 1 tablet Orally Once a day for 10 day(s) 07/06/2024 Active Immunizations Vaccine Route Administration Date Status Comme nts Influenza Unknown 07/16/2023 Administered Social History Tobacco Use: Social History Observation Description Date Details (start date - stop date) Never Smoker NA - NA Tobacco Control (Standard) Question Answer Notes Tobacco use: Nonsmoker AUDIT-C (Standard) Question Answer Notes Did you have a drink containing alcohol in the p ast year? No Points 0 Interpretation Negative Problems Problem Type SNOMED Code ICD Code Onset Dates Problem Status W/U Status Risk Notes Problem Screening for malignant neoplasm of colon (177012272) Encounter for screening for malignant neoplasm of colon (Z12.11) Active confirmed Problem H/O: high risk medication (601265081) High risk medication use (Z79.899) Active confirmed Vital Signs Temperature 98.4 degrees Fahrenheit 07/06/2024 Blood pressure diastolic 01 mm Hg 07/06/2024 Height 66 in 07/06/2024 Blood pressure systolic 001 mm Hg 07/06/2024 Weight 124.4 lbs 07/06/2024 BMI 20.08 kg/m2 07/06/2024 Encounters Encounter Location Date Provider [facility] [address] [place] [phone] 07/06/2024 Darvin Morgan Jr Encounter for screening for malignant neoplasm of colon Z12.11 and High risk medication use Z79.899 Assessments Encounter Date Diagnosis (ICD Code) Assessment Notes Treatment Notes Treatment Clinical Notes Section Notes 07/06/2024 Encounter for screening for malignant neoplasm of colon (ICD-10 - Z12.11) At this time, she appears to be doing well. We discussed colonoscopy today including risks and benefits of the procedure. She understands these and agrees to proceed she is advised to stop diuretics the day before the procedure. 07/06/2024 High risk medication use (ICD-10 - Z79.899) At this time, she appears to be doing well. We discussed colonoscopy today including risks and benefits of the procedure. She understands these and agrees to proceed she is advised to stop diuretics the day before the procedure. Plan Of Treatment Future Test Test Name Order Date COLONOSCOPY 07/06/2024 Next Appt Details Provider Name:Darvin finnegan Jr, 08/04/2024 10:00:00 AM, [facility] , [place], [place], [id number], Insurance Providers Payer Name Payer Address Payer Phone Subscriber Number Group Number Insured Name Patient Relationship to Insured Coverage Start Date Coverage End Date MEDICARE OF [place] [address] [place] [address] [id number] EMORY UGARTE Self - patient is the insured 8 [facility] [address] [place] [address] [id number] EMORY UGARTE Self - patient is the insured Medical (General) History Medical History History ICD Code anxiety Arthritis COPD diverticulitis hyperlipidemia hypertension Hypothyroidism lung cancer Surgical History Surgery Date(Month/Year) Sigmoid resection 08/2021 for diverticula r disease. wisdom teeth extraction lung resection inguinal hernia repair
--- OUTSIDE RECORDS SUMMARY | 2024-07-14 11:45 | XMS_ITS | Encounter Summary ---
Author Organization [facility] Address [address] [place] [address] Phone Care Team Providers Care Risk Engineer Name Role Phone Thais Wiggins MD, PhD Unavailable [phone] Lucia Canchola MD Unavailable [phone] Self-Referred, Patient Unavailable Unavailab Barak Torres DO Primary Care Provider [phone] Link Osorio MD Unavailable Marycarmen Samaniego RN Unavailable Catherine [email or web address] Self-Referred, Patient Unavailable Unavailab Danielle Rivas RN Unavailable [email or web address] Barak Hunt DO Primary Care Provider [phone] Geovany Ortez MD Primary Care Provid er Encounter Details Date Type Department Care Team (Late st Contact Info) Description 12/11/2019 Procedure Pass [facility] PERIOPERATIVE [facility]PT [address] [place] [address] Social History Tobacco Use Types Packs/Day Years [...] 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 Not on file Not on file documented as of this encounter Plan of Treatment Upcoming Encounters Date Type Department Care Team (Late st Contact Info) Description 07/09/2024 Procedure Pass [facility], [address] [address] 11/03/2024 10:30 AM EDT Appointment [address] [address] Mariana Ceballos MD [address] [place] [address] [email or web address] 11/19/2024 10:00 AM EDT Office Visit [facility] Center for Thoracic Oncology [address] [place] [address], 7th Floor, [address] [place] [address] Mariana Ceballos MD [address] [place] [address] [email or web address] Link Osorio MD 10 [facility]-[address] [place] [address] TORY@[email or web address] 06/29/2025 10:00 AM EDT Office Visit [facility] Endocrinology [address] [phone] Zari Genao MD 22 [facility] 3rd [place] [address] [email or web address] documented as of this encounter Visit Diagnoses [...] documented as of this encounter Care Teams Risk Engineer Relationship Specialty Start Date End Date Barak Hunt DO 22 [place] [address] [email or web address] PCP - General Family Medicine 02/10/18 10/22/23 Barak Hunt DO 22 [place] [address] [email or web address] PCP - General Family Medicine 10/23/23 06/28/24 Geovany Ortez MD [address] [place] [phone] PCP - General Internal Medicine 06/29/24 Thais Wiggins MD, PhD [email or web address].[email or web address] DU Thoracic Surgery 09/25/17 Lucia Canchola MD [address] [place] [address] [email or web address] Hematology and Oncology 09/25/17 12/04/21 Self-Referred, Patient 09/26/17 Link Osorio MD [address] [place] [address] [address] TORY@[email or web address] TAN Primary Oncologist Medical Oncology 01/24/22 Marycarmen Samaniego, ANDREW [address] [place] [address] Thoracic [place]cology[place] [phone] [email or web address] Primary Infusion Nurse 01/24/22 12/18/22 Self-Referred, Patient 03/16/22 12/18/22 Danielle Gallegos, ANDREW [address] [place] [address] [email or web address] Primary Infusion Nurse 05/18/22 documented as of this encounter Additional Source Comments The information contained in this document represents components of the legal health record. It is not the complete legal health record.[facility]
--- OUTSIDE RECORDS SUMMARY | 2024-07-14 11:45 | XMS_ITS | Encounter Summary ---
Author Organization [facility] Address [address] [place] [address] Phone Care Team Providers Care Engraver Steel Plate Name Role Phone Thais Wiggins MD, PhD Unavailable [phone] Self-Referred, Patient Unavailable Unavailab Barak Torres DO Primary Care Provider [phone] Link Osorio MD Unavailable [phone] Marycarmen Samaniego RN Unavailable Catherine [email or web address] Self-Referred, Patient Unavailable Unavailab Danielle Rivas RN Unavailable [email or web address] Barak Hunt DO Primary Care Provider [phone] Geovany Ortez MD Primary Care Provid er Encounter Details Date Type Department Care Team (Late st Contact Info) Description 07/25/2022 Procedure Pass [facility] Holter Lab [address] [facility], 5th Floor, [address] [place] [address] Social History Tobacco Use Types Packs/Day Years [...] 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 Not on file Not on file documented as of this encounter Plan of Treatment Upcoming Encounters Date Type Department Care Team (Late st Contact Info) Description 07/09/2024 Procedure Pass [address] [address] 11/03/2024 10:30 AM EDT Appointment [address] [address] Mariana Ceballos MD [address] [place] [address] [email or web address] 11/19/2024 10:00 AM EDT Office Visit [facility] Center for Thoracic Oncology [address] [place] [address], 7th Floor, [address] [place] [address] Mairana Ceballos MD [address] [place] [address] [email or web address] Link Osorio MD [address] [place] [address] [facility]-[address] [place] [address] TORY@[email or web address] 06/29/2025 10:00 AM EDT Office Visit [facility] Endocrinology [address] [address] Zari Genao MD [address] [address] [email or web address] documented as of this encounter Visit Diagnoses Not on filedocumented in this encounter Additional Health Concerns Infection Onset Date Last Indicated Resolved Time CoV-Risk Comment:Per note documentation 07/24/2022 07/24/2022 8:24 AM EDT documented as of this encounter Care Teams Engraver Steel Plate Relationship Specialty Start Date End Date Barak Hunt DO 22 [place] [address] [email or web address] PCP - General Family Medicine 02/10/18 10/22/23 Barak Hunt DO 22 [place] [address] [email or web address] PCP - General Family Medicine 10/23/23 06/28/24 Geovany Ortez MD [address] [place] [phone] PCP - General Internal Medicine 06/29/24 Thais Wiggins MD, PhD [email or web address].[place] Thoracic Surgery 09/25/17 Self-Referred, Patient 09/26/17 Link Osorio MD [address] [place] [address] [address] TORY@[email or web address].[place].[facility] Primary Oncologist Medical Oncology 01/24/22 Marycarmen Samaniego, ANDREW 10 [facility] Thoracic Oncology[address] [address] [email or web address]@[email or web address] Primary Infusion Nurse 01/24/22 12/18/22 Self-Referred, Patient 03/16/22 12/18/22 Danielle Gallegos, RN [address] [place] [address] [email or web address] Primary Infusion Nurse 05/18/22 documented as of this encounter Additional Source Comments The information contained in this document represents components of the legal health record. It is not the complete legal health record.[facility]
--- OUTSIDE RECORDS SUMMARY | 2024-07-14 11:45 | XMS_ITS | Encounter Summary ---
Author Organization [facility] Address [address] [place] [address] Phone Care Team Providers Care Baker Paint Name Role Phone Thais Wiggins MD, PhD Unavailable [phone] Lucia Canchola MD Unavailable [phone] Self-Referred, Patient Unavailable Unavailab Barak Torres DO Primary Care Provider [phone] Link Osorio MD Unavailable [phone] Marycarmen Samaniego RN Unavailable Catherine [email or web address] Self-Referred, Patient Unavailable Unavailab Danielle Rivas RN Unavailable martin @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 on file Not on file documented as of this encounter Plan of Treatment Upcoming Encounters Date Type Department Care Team (Late st Contact Info) Description 07/09/2024 Procedure Pass [facility], [address] [address] 11/03/2024 10:30 AM EDT Appointment [facility] 30 [place] [address] Mariana Ceballos MD [address] [place] [address] [email or web address] 11/19/2024 10:00 AM EDT Office Visit [facility] Center for Thoracic Oncology [address] [place] [address], 7th Floor, [address] [place] [address] Mariana Ceballos MD [address] [place] [address] [email or web address] Link Osorio MD 10 [facility]-[address] [place] [address] TORY@[email or web address] 06/29/2025 10:00 AM EDT Office Visit [facility] Endocrinology [address] [phone] Zari Genao MD 22 [facility] 3rd [place] [address] [email or web address] documented as of [...] documented as of this encounter Care Teams Baker Paint Relationship Specialty Start Date End Date Barak Hunt DO 22 [place] [address] [email or web address] PCP - General Family Medicine 02/10/18 10/22/23 Barak Hunt DO [address] [place] [address] [email or web address] PCP - General Family Medicine 10/23/23 06/28/24 Goevany Ortez MD [address] [place] [phone] PCP - General Internal Medicine 06/29/24 Thais Wiggins MD, PhD [email or web address].[place].E DU Thoracic Surgery 09/25/17 Lucia Canchola MD [address] [place] [address] [email or web address] Hematology and Oncology 09/25/17 12/04/21 Self-Referred, Patient 09/26/17 Link Osorio MD [address] [place] [address] [address] [email or web address] DU Primary Oncologist Medical Oncology 01/24/22 Marycarmen Samaniego, ANDREW [address] [place] [address] [address] [email or web address] Primary Infusion Nurse 01/24/22 12/18/22 Self-Referred, Patient 03/16/22 12/18/22 Danielle Gallegos, ANDREW [address] [place] [address] [email or web address] Primary Infusion Nurse 05/18/22 documented as of this encounter Additional Source Comments The information contained in this document represents components of the legal health record. It is not the complete legal health record.[facility]
--- OUTSIDE RECORDS SUMMARY | 2024-07-14 11:45 | XMS_ITS | Encounter Summary ---
Author Organization [facility] Address [address] [place] [address] Phone Care Team Providers Care Child Study Team Director Name Role Phone Thais Wiggins MD, PhD Unavailable [phone] Self-Referred, Patient Unavailable Unavailab Barak Torres DO Primary Care Provider [phone] Link Osorio MD Unavailable [phone] Marycarmen Samaniego RN Unavailable Catherine [email or web address].[email or web address].[facility] Self-Referred, Patient Unavailable Unavailab Danielle Rivas RN Unavailable martin @[email or web address] Barak Hunt DO Primary Care Provider [phone] Geovany Ortez MD Primary Care Provid er Encounter Details Date Type Department Care Team (Late st Contact Info) Description 01/09/2022 Procedure Pass [facility], [address] [address] Social History Tobacco Use Types Packs/Day Years [...] 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 on file Not on file documented as of this encounter Plan of Treatment Upcoming Encounters Date Type Department Care Team (Late st Contact Info) Description 07/09/2024 Procedure Pass [facility], [address] [address] 11/03/2024 10:30 AM EDT Appointment [address] [address] Mariana Ceballos MD [address] [place] [address] [address] [place] [address] [email or web address] 11/19/2024 10:00 AM EDT Office Visit [facility] Center for Thoracic Oncology [address] [place] [address], 7th Floor, [address] [place] [address] Mariana Ceballos MD [address] [place] [address] [email or web address] Link Osorio MD [address] [place] [address] Thoracic OncologyST[facility]-[address] [place] [address] TORY@[facility] 06/29/2025 10:00 AM EDT Office Visit [facility] Endocrinology [place] [address] [place] [address] Zari Genao MD 22 [facility] 3rd [place] [address] [email or web address] documented as of this encounter Visit Diagnoses Not on filedocumented in this encounter Additional Health Concerns Infection Onset Date Last Indicated Resolved Time CoV-Risk Comment:Per note documentation 07/24/2022 07/24/2022 8:24 AM EDT documented as of this encounter Care Teams Child Study Team Director Relationship Specialty Start Date End Date Barak Hunt DO 22 [place] [address] [email or web address] PCP - General Family Medicine 02/10/18 10/22/23 Barak Hunt DO 22 [place] [address] [email or web address] PCP - General Family Medicine 10/23/23 06/28/24 Geovany Ortez MD [address] [place] [phone] PCP - General Internal Medicine 06/29/24 Thais Wiggins MD, PhD [email or web address]@[email or web address].[place].[facility] Thoracic Surgery 09/25/17 Self-Referred, Patient 09/26/17 Link Osorio MD [address] [place] [address] [address] TORY@[facility].[place].[facility] Primary Oncologist Medical Oncology 01/24/22 Marycarmen Samaniego, RN [address] [place] [address] [address] [email or web address].[email or web address]. [place] Primary Infusion Nurse 01/24/22 12/18/22 Self-Referred, Patient 03/16/22 12/18/22 Danielle Gallegos, ANDREW [address] [place] [address] [email or web address] Primary Infusion Nurse 05/18/22 documented as of this encounter Additional Source Comments The information contained in this document represents components of the legal health record. It is not the complete legal health record.[facility]
--- OUTSIDE RECORDS SUMMARY | 2024-07-14 11:45 | XMS_ITS | Encounter Summary ---
Author Organization [facility] Address [address] [place] [address] Phone Care Team Providers Care Technical Customer Support Specialist Name Role Phone Thais Wiggins MD, PhD Unavailable [phone] Lucia Canchola MD Unavailable [phone] Self-Referred, Patient Unavailable Unavailab Barak Torres DO Primary Care Provider [phone] Link Osorio MD Unavailable [phone] Marycarmen Samaniego RN Unavailable Catherine [email or web address] Self-Referred, Patient Unavailable Unavailab Danielle Rivas RN Unavailable martin @[email or web address] Barak Hunt DO Primary Care Provider [phone] Geovany Ortez MD Primary Care Provid er Encounter Details Date Type Department Care Team (Late st Contact Info) Description 09/26/2017 Procedure Pass [employer] [place] [address] [place] [address] Social History Tobacco Use Types Packs/Day Years [...] 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 on file Not on file documented as of this encounter Plan of Treatment Upcoming Encounters Date Type Department Care Team (Late st Contact Info) Description 07/09/2024 Procedure Pass [facility] 30 [place] [address] 11/03/2024 10:30 AM EDT Appointment [address] [address] Mariana Ceballos MD [address] [place] [address] [email or web address] 11/19/2024 10:00 AM EDT Office Visit [facility] Center for Thoracic Oncology [address] [place] [address], 7th Floor, [address] [place] [address] Mariana Ceballos MD [address] [place] [address] [email or web address] Link Osorio MD [address] [place] [address] Thoracic OncologyNELL [facility]-[address] [place] [address] TORY@[email or web address] 06/29/2025 10:00 AM EDT Office Visit [facility] Endocrinology [place] [address] [place] [address] Zari Genao MD 22 [facility] 3rd [place] [address] [email or web address] documented as of this encounter Visit [...] documented as of this encounter Care Teams Technical Customer Support Specialist Relationship Specialty Start Date End Date Barak Hunt DO [address] [place] [address] [email or web address] PCP - General Family Medicine 02/10/18 10/22/23 Barak Hunt DO [address] [place] [address] @[email or web address] PCP - General Family Medicine 10/23/23 06/28/24 Geovany Ortez MD [address] [place] [phone] PCP - General Internal Medicine 06/29/24 Thais Wiggins MD, PhD [email or web address]@[email or web address].[place].E DU Thoracic Surgery 09/25/17 Lucia Canchola MD [address] [place] [address] [email or web address] Hematology and Oncology 09/25/17 12/04/21 Self-Referred, Patient 09/26/17 Link Osorio MD [address] [place] [address] [address] [email or web address] TAN Primary Oncologist Medical Oncology 01/24/22 Marycarmen Samaniego, ANDREW [address] [place] [address] [address] [email or web address] Primary Infusion Nurse 01/24/22 12/18/22 Self-Referred, Patient 03/16/22 12/18/22 Danielle Gallegos, ANDREW [address] [place] [address] [email or web address] Primary Infusion Nurse 05/18/22 documented as of this encounter Additional Source Comments The information contained in this document represents components of the legal health record. It is not the complete legal health record.[facility]
--- OUTSIDE RECORDS SUMMARY | 2024-07-14 11:45 | XMS_ITS | Encounter Summary ---
Author Organization [facility] Address [address] [place] [address] Phone Care Team Providers Care Food And Beverage Operations Manager Name Role Phone Thais Wiggins MD, PhD Unavailable [phone] Self-Referred, Patient Unavailable Unavailab Barak Torres DO Primary Care Provider [phone] Link Osorio MD Unavailable [phone] Danielle Gallegos RN Unavailable [email or web address] @[facility] Barak Hunt DO Primary Care Provider [phone] Geovany Ortez MD Primary Care Provid er Encounter Details Date Type Department Care Team (Late st Contact Info) Description 07/05/2023 Procedure Pass [facility], Ct Scan - [address] [address] Social History Tobacco Use Types Packs/Day Years [...] 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 11/19/2024 10:00 AM EDT Office [facility] Center for Thoracic Oncology 32 [facility], 7th Floor, [address] [place] [address] Mariana Ceballos MD [address] [place] [address] [email or web address] Link Osorio MD 10 [facility] On[facility] [place] [address] TORY@[email or web address] 06/29/2025 10:00 AM EDT Office Visit [facility] Endocrinology [address] [phone] Zari Genao MD 22 [facility] 3rd [place] [address] [email or web address] documented as of this encounter Visit Diagnoses Not on filedocumented in this encounter Care Teams Food And Beverage Operations Manager Relationship Specialty Start Date End Date Barak Hunt DO 22 [place] [address] [email or web address] PCP - General Family Medicine 02/10/18 10/22/23 Barak Hunt DO 22 [place] [address] [email or web address] PCP - General Family Medicine 10/23/23 06/28/24 Geovany Ortez MD [address] [place] [phone] PCP - General Internal Medicine 06/29/24 Thais Wiggins MD, PhD MALKA@[email or web address].[facility] Thoracic Surgery 09/25/17 Self-Referred, Patient 09/26/17 Link Osorio MD [address] [place] [address] [address] [email or web address].[email or web address].[facility] Primary Oncologist Medical Oncology 01/24/22 Danielle Gallegos, ANDREW [address] [place] [address] [email or web address] Primary Infusion Nurse 05/18/22 documented as of this encounter Additional Source Comments The information contained in this document represents components of the legal health record. It is not the complete legal health record.[facility]
--- OUTSIDE RECORDS SUMMARY | 2024-07-14 11:45 | XMS_ITS | Encounter Summary ---
Author Organization [facility] Address [address] [address] Phone Care Team Providers Care Labeler Name Role Phone Thais Wiggins MD, PhD Unavailable [phone] Self-Referred, Patient Unavailable Unavailab Link Osorio MD Unavailable [phone] Danielle Gallegos RN Unavailable martin [email or web address] Geovany Ortez MD Primary Care Provid er Encounter Details Date Type Department Care Team (Late st Contact Info) Description 07/09/2024 Ancillary Orders [facility] Imaging [address] [place] [address] Link Osorio MD [address] [place] [address] [address] TORY@[email or web address].[email or web address].E [place] Social History Tobacco Use Types Packs/Day Years [...] 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 on file Not on file documented as of this encounter Plan of Treatment Upcoming Encounters Date Type Department Care Team (Late st Contact Info) Description 07/09/2024 Procedure Pass [address] [address] 11/03/2024 10:30 AM EDT Appointment [address] [address] Mariana Ceballos MD [address] [place] [address] [email or web address] 11/19/2024 10:00 AM EDT Office Visit [facility] Center for Thoracic Oncology [address] [place] [address], 7th Floor, [address] [place] [address] Mariana Ceballos MD [address] [place] [address] [email or web address] Link Osorio MD 10 [facility] [place] [address] TORY@[email or web address] 06/29/2025 10:00 AM EDT Office Visit [facility] Endocrinology [place] [address] [place] [address] Zari Genao MD 22 [facility] 3rd [place] [address] [email or web address] documented as of this encounter Results * CT Chest Outside (No Interpretation) (03/11/2024 12:00 AM EST) Narrative [facility] IMG INTERFACES - 07/09/2024 11:01 AM EDT This study is for PACS storage only and not for interpretation. us Lnik Osorio MD IMG OUTSIDE IMAGING W/OUT INT ERPRETATION Final Result [facility] IMG INTERFACES documented in this encounter Visit Diagnoses Not on filedocumented in this encounter Care Teams Labeler Relationship Specialty Start Date End Date Geovany Ortez MD [address] [place] [phone] PCP - General Internal Medicine 06/29/24 Thais Wiggins MD, PhD [email or web address] Thoracic Surgery 09/25/17 Self-Referred, Patient 09/26/17 Link Osorio MD [address] [place] [address] [facility]-[address] [place] [address] TORY@[facility].[place].[facility] Primary Oncologist Medical Oncology 01/24/22 Danielle Gallegos, RN [address] [place] [address] [email or web address] Primary Infusion Nurse 05/18/22 documented as of this encounter Additional Source Comments The information contained in this document represents components of the legal health record. It is not the complete legal health record.[facility]
--- OUTSIDE RECORDS SUMMARY | 2024-07-14 11:45 | XMS_ITS | Encounter Summary ---
Author Organization [facility] Address [address] [place] [address] Phone Care Team Providers Care Roof Truss Detailer Name Role Phone Thais Wiggins MD, PhD Unavailable [phone] Lucia Canchola MD Unavailable [phone] Self-Referred, Patient Unavailable Unavailab Barak Torres DO Primary Care Provider [phone] Link Osorio MD Unavailable [phone] Marycarmen Samaniego RN Unavailable Catherine [email or web address].[facility] Self-Referred, Patient Unavailable Unavailab Danielle Rivas RN Unavailable [email or web address] Barak Hunt DO Primary Care Provider [phone] Geovany Ortez MD Primary Care Provid er Encounter Details Date Type Department Care Team (Late st Contact Info) Description 12/22/2019 Procedure Pass [facility], Ct Scan - [facility] [address] [place] [address] Social History Tobacco Use Types Packs/Day Years [...] 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 Not on file documented as of this encounter Plan of Treatment Upcoming Encounters Date Type Department Care Team (Late st Contact Info) Description 07/09/2024 Procedure Pass [facility], [facility] [address] [place] [address] 11/03/2024 10:30 AM EDT Appointment [address] [address] Mariana Ceballos MD [address] [place] [address] [email or web address] 11/19/2024 10:00 AM EDT Office Visit [facility] Center for Thoracic Oncology [address] [place] [address], 7th Floor, [address] [place] [address] Mariana Ceballos MD [address] [place] [address] [email or web address] Link Osorio MD [address] [place] [address] [facility]-[address] [place] [address] TORY@[facility] 06/29/2025 10:00 AM EDT Office Visit [facility] Endocrinology [place] [address] [place] [address] Zari Genao MD [address] [facility] 3rd [place] [address] [email or web address] documented as of [...] documented as of this encounter Care Teams Roof Truss Detailer Relationship Specialty Start Date End Date Barak Hunt DO [address] [place] [address] [email or web address] PCP - General Family Medicine 02/10/18 10/22/23 Barak Hunt DO [address] [place] [email or web address] PCP - General Family Medicine 10/23/23 06/28/24 Geovany Ortez MD [address] [place] [phone] PCP - General Internal Medicine 06/29/24 Thais Wiggins MD, PhD [email or web address].[email or web address].E DU Thoracic Surgery 09/25/17 Lucia Canchola MD [address] [place] [address] [email or web address] Hematology and Oncology 09/25/17 12/04/21 Self-Referred, Patient 09/26/17 Link Osorio MD [address] [place] [address] [address] [email or web address] TAN Primary Oncologist Medical Oncology 01/24/22 Marycarmen Samaniego, ANDREW [address] [place] [address] [address] [email or web address] Primary Infusion Nurse 01/24/22 12/18/22 Self-Referred, Patient 03/16/22 12/18/22 Danielle Gallegos, ANDREW [address] [place] [address] [email or web address] Primary Infusion Nurse 05/18/22 documented as of this encounter Additional Source Comments The information contained in this document represents components of the legal health record. It is not the complete legal health record.[facility]
--- OUTSIDE RECORDS SUMMARY | 2024-07-14 11:45 | XMS_ITS | Encounter Summary ---
Author Organization [facility] Address [address] [place] [address] Phone Care Team Providers Care Test Lead Application Testing Name Role Phone Thais Wiggins MD, PhD Unavailable [phone] Self-Referred, Patient Unavailable Unavailab Barak Torres DO Primary Care Provider [phone] Link Osorio MD Unavailable [phone] Marycarmen Samaniego RN Unavailable Catherine [email or web address] Self-Referred, Patient Unavailable Unavailab Danielle Rivas RN Unavailable martin @[facility] Barak Hunt DO Primary Care Provider [phone] Geovany Ortez MD Primary Care Provid er Encounter Details Date Type Department Care Team (Late st Contact Info) Description 06/15/2022 Procedure Pass [facility] [place] 32 [facility], 6th [place] [address] Social History Tobacco Use Types Packs/Day Years [...] 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 on file Not on file documented as of this encounter Plan of Treatment Upcoming Encounters Date Type Department Care Team (Late st Contact Info) Description 07/09/2024 Procedure Pass [facility], [address] [address] 11/03/2024 10:30 AM EDT Appointment [facility] 30 [place] [address] Mariana Ceballos MD [address] [place] [address] [email or web address] 11/19/2024 10:00 AM EDT Office [facility] for Thoracic Oncology [address] [place] [address], 7th Floor, [address] [place] [address] Mariana Ceballos MD [address] [place] [address] [email or web address] Link Osorio MD 10 [facility] Thor[facility]cologyST[facility]-[address] [place] [address] TORY@[email or web address] 06/29/2025 10:00 AM EDT Office Visit [facility] Endocrinology [place] [phone] Zari Genao MD 22 [facility] 3rd [place] [address] [email or web address] documented as of this encounter Visit Diagnoses Not on filedocumented in this encounter Additional Health Concerns Infection Onset Date Last Indicated Resolved Time CoV-Risk Comment:Per note documentation 07/24/2022 07/24/2022 05/31/202 3 8:24 AM EDT documented as of this encounter Care Teams Test Lead Application Testing Relationship Specialty Start Date End Date Barak Hunt DO 22 [place] [address] [email or web address] PCP - General Family Medicine 02/10/18 10/22/23 Barak Hunt DO 22 [place] [address] [email or web address] PCP - General Family Medicine 10/23/23 06/28/24 Geovany Ortez MD [address] [place] [phone] PCP - General Internal Medicine 06/29/24 Thais Wiggins MD, PhD [email or web address].[facility] Thoracic Surgery 09/25/17 Self-Referred, Patient 09/26/17 Link Osorio MD [address] [place] [address] [address] TORY@[email or web address].[facility] Primary Oncologist Medical Oncology 01/24/22 Marycarmen Samaniego, RN [address] [place] [address] [address] [email or web address]@[email or web address]. [place] Primary Infusion Nurse 01/24/22 12/18/22 Self-Referred, Patient 03/16/22 12/18/22 Danielle Gallegos, ANDREW [address] [place] [address] [email or web address] Primary Infusion Nurse 05/18/22 documented as of this encounter Additional Source Comments The information contained in this document represents components of the legal health record. It is not the complete legal health record.[facility]
--- OUTSIDE RECORDS SUMMARY | 2024-07-14 11:45 | XMS_ITS | Encounter Summary ---
Author Organization [facility] Address [address] [place] [address] Phone Care Team Providers Care Spiritual Minister Name Role Phone Thais Wiggins MD, PhD Unavailable [phone] Lucia Canchola MD Unavailable [phone] Self-Referred, Patient Unavailable Unavailab Barak Torres DO Primary Care Provider [phone] Link Osorio MD Unavailable [phone] Marycarmen Samaniego RN Unavailable Catherine [email or web address].[place].[facility] Self-Referred, Patient Unavailable Unavailab Danielle Rivas RN Unavailable martin [email or web address] Barak Hunt DO Primary Care Provider [phone] Geovany Ortez MD Primary Care Provid er Encounter Details Date Type Department Care Team (Late st Contact Info) Description 12/20/2020 Procedure Pass [facility] CT Imaging, [place] [address] [place] [address] Social History Tobacco Use Types Packs/Day Years [...] 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 Not on file documented as of this encounter Plan of Treatment Upcoming Encounters Date Type Department Care Team (Late st Contact Info) Description 07/09/2024 Procedure Pass [facility], [facility] 30 [place] [address] 11/03/2024 10:30 AM EDT Appointment [facility] 30 [place] [address] Mariana Ceballos MD [address] [place] [address] [email or web address] 11/19/2024 10:00 AM EDT Office Visit [facility] Center for Thoracic Oncology [address] [place] [address], 7th Floor, [address] [place] [address] Mariana Ceballos MD [address] [place] [address] [email or web address] Link Osorio MD [address] [place] [address] [facility] OncologyPORT[facility]F [facility]-[address] [place] [address] TORY@[facility] 06/29/2025 10:00 AM EDT Office Visit [facility] Endocrinology [place] [phone] Zari Genao MD [address] [place] [address] 3rd [place] [address] [email or web address] documented as of this encounter Visit Diagnoses Not on filedocumented in this encounter Additional Health Concerns Infection Onset Date Last Indicated Resolved Time CoV-Exposed Comment:Recent close contact documented in the COVID-19 PCR/PRO order 09/09/2021 09/09/2021 09/20/2021 1:22 AM E DT CoV-Risk 11/17/2021 11/17/2021 11/17/2021 10:4 1 AM EDT COVID-19 11/17/2021 11/17/2021 12/08/2021 1:21 AM EDT CoV-Risk Comment:Per note documentation 07/24/2022 07/24/2022 8:24 AM EDT documented as of this encounter Care Teams Spiritual Minister Relationship Specialty Start Date End Date Barak Hunt DO 22 [place] [address] [email or web address] PCP - General Family Medicine 02/10/18 10/22/23 Barak Hunt DO 22 [place] [address] [email or web address] PCP - General Family Medicine 10/23/23 06/28/24 Geovany Ortez MD [address] [place] [phone] PCP - General Internal Medicine 06/29/24 Thais Wiggins MD, PhD [email or web address]@[email or web address].[place]. DU Thoracic Surgery 09/25/17 Lucia Canchola MD [address] [place] [address] [email or web address] Hematology and Oncology 09/25/17 12/04/21 Self-Referred, Patient 09/26/17 Link Osorio MD [address] [place] [address] [address] TORY@[facility].[place].Noe MADDOX Primary Oncologist Medical Oncology 01/24/22 Marycarmen Samaniego, RN 10 [facility] Thoracic Oncology[address] [address] [email or web address]@[email or web address] Primary Infusion Nurse 01/24/22 12/18/22 Self-Referred, Patient 03/16/22 12/18/22 Danielle Gallegos RN [address] [place] [address] [email or web address] Primary Infusion Nurse 05/18/22 documented as of this encounter Additional Source Comments The information contained in this document represents components of the legal health record. It is not the complete legal health record.[facility]
--- OUTSIDE RECORDS SUMMARY | 2024-07-14 11:45 | XMS_ITS | Encounter Summary ---
Author Organization [facility] Address [address] [place] [address] Phone Care Team Providers Care Purchasing Manager Name Role Phone Jan Das MD Unavailable [phone] Thais Wiggins MD, PhD Unavailable [phone] Lucia Canchola MD Unavailable [phone] Self-Referred, Patient Unavailable Unavailab Barak Torres DO Primary Care Provider [phone] Link Osorio MD Unavailable [phone] Marycarmen Samaniego RN Unavailable Catherine [email or web address] Self-Referred, Patient Unavailable Unavailab Danielle Rivas RN Unavailable martin @[email or web address] Barak Hunt DO Primary Care Provider [phone] Geovany Ortez MD Primary Care Provid er Encounter Details Date Type Department Care Team (Late st Contact Info) Description 09/09/2017 Procedure Pass [facility] [address] [place] [address] Social History Tobacco Use Types Packs/Day Years [...] 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 on file Not on file documented as of this encounter Plan of Treatment Upcoming Encounters Date Type Department Care Team (Late st Contact Info) Description 07/09/2024 Procedure Pass [facility], [address] [address] 11/03/2024 10:30 AM EDT Appointment [facility] 30 [place] [address] Mariana Ceballos MD [address] [place] [address] [email or web address] 11/19/2024 10:00 AM EDT Office [facility] Center for Thoracic Oncology [address] [place] [address], 7th Floor, [address] [place] [address] Mariana Ceballos MD [address] [place] [address] [email or web address] Link Osorio MD 10 [facility] Thoracic OncologySAINT [facility]-[address] [place] [address] TORY@[email or web address] 06/29/2025 10:00 AM EDT Office Visit [facility] Endocrinology [place] 40 [place] [phone] Zari Genao MD 22 [facility] 3rd [place] [address] [email or web address] [...] documented as of this encounter Care Teams Purchasing Manager Relationship Specialty Start Date End Date Barak Hunt DO 22 [place] [address] [email or web address] PCP - General Family Medicine 02/10/18 10/22/23 Barak Hunt DO [address] [place] [address] @[facility] PCP - General Family Medicine 10/23/23 06/28/24 Geovany Ortez MD [address] [place] [phone] PCP - General Internal Medicine 06/29/24 Jan Das MD [address] [place] [address] [email or web address] [facility] Thoracic Surgery 08/13/17 09/24/17 Thais Wiggins MD, PhD [address] [place] [address] MALKA@[email or web address].E DU Thoracic Surgery 09/25/17 Lucia Canchola MD [address] [place] [address] [email or web address] Hematology and Oncology 09/25/17 12/04/21 Self-Referred, Patient 09/26/17 Link Osorio MD [address] [place] [address] [email or web address]. TAN Primary Oncologist Medical Oncology 01/24/22 Marycarmen Samaniego, ANDREW [address] [place] [address] [email or web address] Primary Infusion Nurse 01/24/22 12/18/22 Self-Referred, Patient 03/16/22 12/18/22 Danielle Gallegos, ANDREW [address] [place] [address] [email or web address] Primary Infusion Nurse 05/18/22 documented as of this encounter Additional Source Comments The information contained in this document represents components of the legal health record. It is not the complete legal health record.[facility]
--- OUTSIDE RECORDS SUMMARY | 2024-07-14 11:45 | XMS_ITS | Encounter Summary ---
Author Organization [facility] Address [address] [place] [address] Phone Care Team Providers Care Can Top Setter Name Role Phone Thais Wiggins MD, PhD Unavailable [phone] Self-Referred, Patient Unavailable Unavailab Link Prakash MD Unavailable [phone] Danielle Gallegos RN Unavailable martin [email or web address] Braak Hunt DO Primary Care Provider [phone] Geovany Ortez MD Primary Care Provid er Encounter Details Date Type Department Care Team (Late st Contact Info) Description 03/25/2024 Procedure Pass [facility], Ct Scan - [address] [address] Social History Tobacco Use Types Packs/Day Years [...] 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 Not on file Not on file documented as of this encounter Plan of Treatment Upcoming Encounters Date Type Department Care Team (Late st Contact Info) Description 07/09/2024 Procedure Pass [facility], [address] [address] 11/03/2024 10:30 AM EDT Appointment [address] [address] Mariana Ceballos MD [address] [place] [address] [email or web address] 11/19/2024 10:00 AM EDT Office Visit [facility] Center for Thoracic Oncology [address] [facility], 7th Floor, [address] [place] [address] Mariana Ceballos MD [address] [place] [address] [email or web address] Link Osorio MD [facility]cologyMIN[facility]304 [place] [address] TORY@[facility] 06/29/2025 10:00 AM EDT Office Visit [facility] Endocrinology [place] [address] [place] [phone] Zari Genao MD 22 [facility] 3rd [place] [address] [email or web address] documented as of this encounter Visit Diagnoses Not on filedocumented in this encounter Care Teams Can Top Setter Relationship Specialty Start Date End Date Barak Hunt DO [address] [place] [address] [email or web address] PCP - General Family Medicine 10/23/23 06/28/24 Geovany Ortez MD [address] [place] [phone] PCP - General Internal Medicine 06/29/24 Thais Wiggins MD, PhD MALKA@[facility] Thoracic Surgery 09/25/17 Self-Referred, Patient 09/26/17 Link Osorio MD [address] [place] [address] [address] TORY@[facility].[place].[facility] Primary Oncologist Medical Oncology 01/24/22 Danielle Gallegos, RN [address] [place] [address] [email or web address] Primary Infusion Nurse 05/18/22 documented as of this encounter Additional Source Comments The information contained in this document represents components of the legal health record. It is not the complete legal health record.[facility]
--- OUTSIDE RECORDS SUMMARY | 2024-07-14 11:45 | XMS_ITS | Encounter Summary ---
Author Organization [facility] Address [address] [place] [address] Phone Care Team Providers Care Obstetrics Specialist Name Role Phone Thais Wiggins MD, PhD Unavailable [phone] Self-Referred, Patient Unavailable Unavailab Barak Torres DO Primary Care Provider [phone] Link Osorio MD Unavailable [phone] Marycarmen Samaniego RN Unavailable 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 on file Not on file documented as of this encounter Plan of Treatment Upcoming Encounters Date Type Department Care Team (Late st Contact Info) Description 07/09/2024 Procedure Pass [address] [address] 11/03/2024 10:30 AM EDT Appointment [address] [address] Mariana Ceballos MD [address] [place] [address] [email or web address] 11/19/2024 10:00 AM EDT Office Visit [facility] Center for Thoracic Oncology [address] [place] [address], 7th Floor, [address] [place] [address] Mariana Ceballos MD [address] [place] [address] [email or web address] Link Osorio MD 10 [facility] [place] [address] [email or web address] 06/29/2025 10:00 AM EDT Office Visit [facility] Endocrinology [address] [place] [address] Zari Genao MD 22 [facility] 3rd [place] [address] [email or web address] documented as of this encounter Visit Diagnoses Not on filedocumented in this encounter Care Teams Obstetrics Specialist Relationship Specialty Start Date End Date Barak Hunt DO 22 [place] [address] [email or web address] PCP - General Family Medicine 02/10/18 10/22/23 Barak Hunt DO [address] [place] [address] [email or web address] PCP - General Family Medicine 10/23/23 06/28/24 Geovany Ortez MD [address] [place] [phone] PCP - General Internal Medicine 06/29/24 Thais Wiggins MD, PhD [email or web address] Thoracic Surgery 09/25/17 Self-Referred, Patient 09/26/17 Link Osorio MD [address] [place] [address] [address] [email or web address] Primary Oncologist Medical Oncology 01/24/22 Marycarmen Samaniego RN [address] [place] [address] [address] [email or web address] Primary Infusion Nurse 01/24/22 12/18/22 Self-Referred, Patient 03/16/22 12/18/22 Danielle Gallegos RN [address] [place] [phone] Primary Infusion Nurse 05/18/22 documented as of this encounter Additional Source Comments The information contained in this document represents components of the legal health record. It is not the complete legal health record.[facility]
--- OUTSIDE RECORDS SUMMARY | 2024-07-14 11:45 | XMS_ITS | Encounter Summary ---
Author Organization [facility] Address [address] [facility] [address] [place] [address] Phone Care Team Providers Care Filling Technician Name Role Phone Thais Wiggins MD, PhD Unavailable [phone] Self-Referred, Patient Unavailable Unavailab Link Prakash MD Unavailable [phone] Danielle Gallegos RN Unavailable [email or web address] Geovany Ortez MD Primary Care Provid er Reason for Referral * MRI/CAT Scan - New Request Specialty Diagnoses / Procedures Referred By Derrell barnes Referred To Contact Radiology Diagnoses Malignant neoplasm of middle lobe of right lung Procedures CT Chest Mariana Ceballos MD 32 [facility] [address] [place] [address] Phone: tel: fax: mailto:[email or web address] Referral ID Status Reason Start Date Expiration Date V isits Requested Visits Authorized [id number] New Request 07/09/2024 1 1 Encounter Details Date Type Department Care Team ([facility] st Contact Info) Description 07/09/2024 9:30 AM EDT Office Visit [facility] Center for Thoracic Oncology 32 [facility], 7th Floor, [address] [place] [address] Link Osorio MD 10 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 Not on file Not on file documented as of this encounter Last Filed Vital Signs Vital Sign Reading Time Taken Comments Blood Pressure 132/85 07/09/2024 10:10 AM EDT Pulse 92 07/09/2024 10:10 AM EDT Temperature 36.2 ??C (97.2 ??F) 07/09/2024 10:10 AM E DT Respiratory Rate 16 07/09/2024 10:10 AM EDT Oxygen Saturation 96% 07/09/2024 10:10 AM EDT Inhaled Oxygen Concentration - - Weight 56.3 kg (124 lb 3.2 oz) 07/09/2024 10:10 AM EDT Height - - Body Mass Index 20.44 06/29/2024 10:22 AM EDT documented in this encounter Progress Notes * Link Osorio MD - 07/09/2024 9:30 AM EDT Images from the original note were not included. [facility] [address] [place] [address] P [phone] F [phone] [facility] Thoracic Oncology Progress Note MEDICAL ONCOLOGIST: Link Osorio MD SURGICAL ONCOLOGIST: Thais Wiggins MD RADIATION ONCOLOGIST: Jenifer James MD LOCAL ONCOLOGIST: Kale Black MD, [facility] PATIENT IDENTIFICATION: Krishna Ornelas is a 73 y.o. 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 ONCOLOGY HISTORY Cancer Staging Malignant neoplasm of middle lobe of right lung Staging form: Lung, AJCC 8th Edition - Clinical: No stage assigned - Unsigned - Pathologic stage from 09/26/2017: Stage IB (pT2a, pN0, cM0) - Signed by Lucia Canchola MD on 09/26/2017 Oncology History Overview Note 07/29/17 - screening Chest CT showed a 1.3 x 2.3 x 1.7 cm irregular right middle lobe nodule posteriorly extending to both the major and minor fissures. There was a 1.5 cm soft tissue density centrally. There was a 0.5 cm density along the minor fissure and several other smaller nodules including a 0.5 cm lingular nodule. There was no mediastinal or hilar lymphadenopathy. There was a 1.9 cm round left adrenal nodule likely consistent with an adenoma. 08/08/17 - PET/CT showed FDG avidity in the spiculated right middle lobe nodule (SUV 3.9) with additional scattered sub centimeter nodules that are not avid. There was no FDG lymphadenopathy in the chest. There was a 1.9 cm left adrenal nodule that was not avid. There was symmetric hypermetabolism in bilateral palatine tonsils with calcifications (SUV 5.3) suggestive of chronic inflammation. 08/16/17 - PFT's showed FVC of 3.28 (101%) FEV1 of 1.73(69%) 08/21/17 - Dr. Wiggins performed a right thoracoscopy right middle lobectomy with lymph node dissection. There was a 2.8 cm invasive adenocarcinoma, micropapillary predominant, poorly differentiated. There was VPI. Margins were negative. Distance from closest margin was 0.6 cm to parenchymal margin. There was no tumor in two station 10R LN and three station 7 LN. 11/28/21: Chest CT - enlarged R hilar node 12/21/21: PET-CT - intense FDG uptake in the R hilar node 12/27/21: EBUS - adenocarcinoma in the R hilar node; PD-L1 15%. Molecular profiling - KRAS G12C 02/01/22-03/15/2022: Carboplatin/pemetrexed with definitive RT 04/20/2022: C1D1 durvalumab 03/2023: Completes consolidation durvalumab Malignant neoplasm of middle lobe of right lung 09/06/2017 Initial Diagnosis Malignant neoplasm of middle lobe of right lung 12/27/[address] chest with contrast on 11/28/21 showed development of an enlarged right hilar LN, measuring 2.0 x 1.5 cm. PET/CT on 12/21/21 showed an intensely FDG avid right hilar LN. There was no evidence of rodrick or distant FDG uptake. Dr. Wiggins performed bronchoscopy with EBUS-guided biopsy on 12/27/21. There were no endobronchial lesion. The right hilar LN was biopsied under EBUS-guidance. Pathology showed adenocarcinoma. 02/01/2022 - 03/15/2022 Systemic Therapy Adjuvant/Neoadjuvant; PEMETREXED/CARBOPLATIN-THORACIC Link Osorio MD 02/20/2022 - 04/04/2022 Radiation Radiotherapy to right hilar recurrence, 69 Gy in 30 fx SIB, 44 Gy in 22 fx CTV. 04/20/2022 - 06/15/2022 Systemic Therapy Curative; Durvalumab 10 mg/kg Q2W Link Osorio MD 06/28/2022 - 12/13/2022 Systemic Therapy Curative; DURVALUMAB 1500 MG Q4W Link Osorio MD Interval History: Here today accompanied by her . - She is overall feeling well - They returned from [place] 2 wks ago - No major changes in her health since her last visit with us in 11/2023 - She was seeing Dr. Black in [place] since she and her live there in the winter - She reports having mild left hand tingling in the left 5th finger for about 5 months, resolved after she started vitamin B12 supplement - She notes she tends to sleep on her left side; she would wake up with the neuropathy and it wouldimprove over the course of the day - Has not had neuropathy for at least the last 2 months - Still has very mild vitiligo, just two sites on her neck, improved from her last visit - States that she is continuing to use Opzelura cream (topical ruxolitinib) prescribed by her localdermatologist for the vitiligo - Not needing any additional topical steroids - She has re-established with her graphics artist and yeast pumper in [place] - Energy levels are good. PAST MEDICAL HISTORY: Past Medical History: Diagnosis Date Age-related osteoporosis without current pathological fracture Hairline fx humerus, left, after fall. Alendronate x ~ 5 yrs in 2022 Anxiety 2018 Denies and not on medication Arthritis Hip pain L hip aches and [facility] consult planned 08/30/21 for THR in the future. Chronic obstructive pulmonary disease DX 2017. no exacerbation, uses Pro -air prn. Seen Dr. Leighton Roth [place] 07/2021 - Completed PFT Diverticulitis With stricture. Last antibiotic spring 2021. Seen surgery consult. Dr. Garcia. History of snoring No previous sleep study Hypercholesterolemia Hyperlipidemia Just started medication statin Hypertensive disorder controlled with medication. Lung cancer RML lobectomy for a T2N0 2.8 cm poorly differerentiated adenocarcinoma on 08/21/17. Visceral pleuralinvasion was noted. meet with Dr Canchola given the pathology, and chemotherapy was not recommended.Followed by Dr Wiggins [facility]. Imaging stable Motion sickness Post-operative nausea and vomiting Nausea and vomiting with previous GA. Scopolmine patch with good effect with thoracic surgery. Postablative hypothyroidism Snoring Tinnitus intermittent tinnitus- high frequency hearing loss both ears MEDICATIONS: Current Outpatient Medications Ordered in [facility] Medication Sig albuterol sulfate (PROAIR HFA INHL) Inhale 2 puffs into the lungs every 6 (six) hours as needed (excercise). bacillus coagulans-inulin 1 billion-250 cell-mg Cap Take 250 mg by mouth daily. srhfbqikic-ekzujhcz-ldhmwvmego (BREZTRI AEROSPHERE) 160-9-4.8 mcg/actuation inhaler 2 puffs. famotidine (PEPCID) 40 MG tablet Take 1 tablet (40 mg total) by mouth daily. hydroCHLOROthiazide (MICROZIDE) 12.5 mg capsule Take 12.5 mg by mouth daily. SPIRIVA RESPIMAT 2.5 mcg/actuation mist for inhalation INHALE 2 INHALATIONS BY MOUTH EVERY DAY (Patient not taking: Reported on 06/29/2024) SYNTHROID 75 mcg tablet Take 1 tablet (75 mcg total) by mouth every morning. tretinoin (RETIN-A) 0.025 % cream Apply 1 application topically nightly at bedtime. valACYclovir (VALTREX) 1000 MG tablet Take 1,000 mg by mouth as needed (Cold sores). ALLERGIES: Allergies Allergen Reactions Lisinopril cough Sulfa (Sulfonamide Antibiotics) Rash FAMILY HISTORY: Family History Problem Relation Age of Onset Colon cancer Mother Pancreatic cancer Mother 84 Hip fracture Mother Coronary artery disease Father 63 Leukemia Father Arthritis Father Thyroid disease Maternal Grandmother brant's/goiter, s/p thyroidectomy Breast cancer Maternal Grandmother Ovarian cancer Maternal Grandmother Bone cancer Maternal Grandfather Lupus Paternal Grandmother Lupus Daughter Lupus Paternal Aunt Nephrolithiasis Neg Hx SOCIAL HISTORY: Social History Socioeconomic History Marital status: /Civil Union Spouse name: Not on file Number of children: 2 Years of education: Not on file Highest education level: Not on file Occupational History Occupation: Retired office specialist Tobacco Use Smoking status: Former Current packs/day: 0.00 Average packs/day: 1 pack/day for 20.0 years (20.0 ttl pk-yrs) Types: Cigarettes Start date: 02/25/1987 Quit date: 02/25/2007 Years since quittin.3 Smokeless tobacco: Never Vaping Use Vaping status: never used Substance and Sexual Activity Alcohol use: No Drug use: Not Currently Types: Marijuana Comment: occasional edibles- 1-2 times per week for sleep Sexual activity: Not on file Other Topics Concern Not on file Social History Narrative 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 ECO- Restricted in physically strenuous activity but ambulatory and able to carry out work of alight or sedentary nature, e.g., light house work, office work Gen: Well appearing, well nourished, no acute distress, vitiligo-like changes on scalp and neck HEENT: EOMI, no conjunctival pallor or icterus, moist mucus membranes Resp: Clear to auscultation bilaterally, breathing comfortably CV: regular rate and rhythm, normal S1/S2, no m/r/g Abd: soft, nontender, nondistended Extremities: warm, no edema Neuro: CN II-XII grossly intact, moving all extremities Skin: Two sites of white hypopigmentation from vitiligo on neck LABS: 06/29/24 - TSH 2.61, CMP wnl RADIOLOGY: CT Chest Result Date: 07/03/2024 CT CHEST WITH CONTRAST Referring clinician's provided indication for this examination in [facility]: * Non-small cell lung cancer, monitor TECHNIQUE: Multidetector CT of the chest was performed with intravenous contrast using tailored dose modulation techniques. COMPARISON: CT CHEST WITH CONTRAST ; NM OUTSIDE PET WHOLE BODY NO INTERPRETATION FINDINGS: Devices/Tubes/Lines: None. Lungs: Status post right middle lobectomy. Stable appearance of the suture margin. Unchanged right perihilar radiation fibrosis. Unchanged 4 mm right lower lobe nodule (5:217). Unchanged additional pulmonary nodules, for example in the left lower lobe (5:283). Upper lobe predominant emphysema. Unchanged bullae/blebs in the lower lungs. Diffuse bronchial wall thickening. Patent central airways. Pleura: No pleural effusion or pneumothorax. Mediastinum: No pericardial effusion. Mild coronary artery calcification. Lymph Nodes: No new enlarged supraclavicular, axillary, mediastinal, or hilar lymph no albina by CT size criteria. Unchanged mild soft tissue in the right hilum. Upper Abdomen: Unchanged left adrenal gland nodule (3:106) since 2018. Chest Wall: No suspicious chest wall mass. Limited evaluation of breast parenchyma by CT. Bones: No destructive osseous lesions. Relative lucency of narrowing in the midthoracic spine, may represent post radiation therapy change. 1. Posttreatment changes on the right without specific evidence of recurrence. SSMENT AND PLAN: Problem List Items Addressed This Visit Hematology and Oncology Malignant neoplasm of middle lobe of right lung - Primary Krishna Ornelas is a 73 y.o. 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 # NSCLC - She now presents for follow-up - Completed durvalumab in Mar 2023 - Repeat CT chest from 07/03/24, which we have personally reviewed, shows no evidence of new or progressive disease, with 4 mm RLL nodule unchanged from last scan. Great news! - As of 03/2024, she is 2 years from start of her durvalumab consolidation, so we can start to spaceapart her scans - Repeat CT chest in 4 months for ongoing surveillance, and after that, will space apart to every 6months # Rash: concerning for vitiligo, overall improved from prior - Prior biopsy confirmed findings consistent with vitiligo - continue topical treatment with Opzelura prescribed by her local graphics artist #GERD - Pepcid BID #Hypothyroid- - Currently on synthroid 75 mcg daily - Seeing yeast pumper regularly, with TFTs in 06/2024 wnl # Left hip osteoarthritis - s/p L hip replacement Relevant Orders CT Chest I have maintained a longitudinal relationship with the patient, overseeing the care of their cancer. This has significantly influenced my decision-making and treatment plans during today's encounter. Mariana Ceballos MD, MS? Oncology Fellow, Year 2 [facility] Patient was seen and discussed with Dr. Link Osorio, attending physician, who agrees with the above assessment and plan. An addendum will follow this note. Oncology Attending Addendum: Patient seen and discussed with Dr. Ceballos. I agree with her history, findings and plan as outlined above. Krishna Ornelas is a 73 y.o. 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 Repeat surveillance scans, which I have personally reviewed, show no evidence of new or progressive disease. Great news! Plan for repeat CT chest in 4 months, after which we can likely space out to q6 months. Remainder of plan as above. Link Osorio MD [facility] documented in this encounter Miscellaneous Notes * Assessment & Plan Note - Mariana Ceballos MD - 07/09/2024 12:47 PM EDT Associated Problem(s): Malignant neoplasm of middle lobe of right lung Krishna Ornelas is a 73 y.o. 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 # NSCLC - She now presents for follow-up - Completed durvalumab in Mar 2023 - Repeat CT chest from 07/03/24, which we have personally reviewed, shows no evidence of new or progressive disease, with 4 mm RLL nodule unchanged from last scan. Great news! - As of 03/2024, she is 2 years from start of her durvalumab consolidation, so we can start to spaceapart her scans - Repeat CT chest in 4 months for ongoing surveillance, and after that, will space apart to every 6months # Rash: concerning for vitiligo, overall improved from prior - Prior biopsy confirmed findings consistent with vitiligo - continue topical treatment with Opzelura prescribed by her local graphics artist #GERD - Pepcid BID #Hypothyroid- - Currently on synthroid 75 mcg daily - Seeing yeast pumper regularly, with TFTs in 06/2024 wnl # Left hip osteoarthritis - s/p L hip replacement documented in this encounter Plan of Treatment Upcoming Encounters Date Type Department Care Team (Late st Contact Info) Description 07/09/2024 Procedure Pass [facility], Ct Scan - [address] [address] 11/03/2024 10:30 AM EDT Appointment [facility], Ct Scan [address] [address] Mariana Ceballos MD [address] [place] [address] [email or web address] 11/19/2024 10:00 AM EDT Office Visit [facility] Center for Thoracic Oncology [address] [place] [address], 7th Floor, [address] [place] [address] Mariana Ceballos MD [address] [place] [address] [email or web address] Link Osorio MD [facility] [place] [address] [email or web address] 06/29/2025 10:00 AM EDT Office Visit [facility] Endocrinology [address] [phone] Zari Genao MD 22 [facility] 3[address] [place] [address] [email or web address] Scheduled Orders Name Type Priority Associated Diagnoses Orde r Schedule CT Chest Imaging Routine Malignant neoplasm of middle lobe of right lung Expected: 11/09/2024, Expires: 04/11/2025 documented as of this encounter Visit Diagnoses Diagnosis Malignant neoplasm of middle lobe of right lung- Primary documented in this encounter Care Teams Filling Technician Relationship Specialty Start Date End Date Geovany Ortez MD [address] [phone] PCP - General Internal Medicine 06/29/24 Thais Wiggins MD, PhD [email or web address] [email or web address] Surgery 09/25/17 Self-Referred, Patient 09/26/17 Link Osorio MD [address] [place] [address] [address] [email or web address] Primary Oncologist Medical Oncology 01/24/22 Danielle Gallegos, RN [address] [place] [address] [email or web address] Primary Infusion Nurse 05/18/22 documented as of this encounter Additional Source Comments The information contained in this document represents components of the legal health record. It is not the complete legal health record.[facility]
--- OUTSIDE RECORDS SUMMARY | 2024-07-14 11:45 | XMS_ITS | Encounter Summary ---
Author Organization [facility] Address [address] [place] [address] Phone Care Team Providers Care Stockkeeper Name Role Phone Jan Das MD Unavailable Thais Wiggins MD, PhD Unavailable [phone] Lucia Canchola MD Unavailable [phone] Self-Referred, Patient Unavailable Unavailab Barak Torres DO Primary Care Provider [phone] Link Osorio MD Unavailable [phone] Marycarmen Samaniego RN Unavailable Catherine [email or web address] Self-Referred, Patient Unavailable Unavailab Danielle Rivas RN Unavailable martin [email or web address] Barak Hunt DO Primary Care Provider [phone] Geovany Ortez MD Primary Care Provid er Encounter Details Date Type Department Care Team (Late st Contact Info) Description 08/21/2017 Procedure Pass [facility] Periop [address] [place] [address] Social History Tobacco Use Types Packs/Day Years [...] 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 Not on file Not on file documented as of this encounter Plan of Treatment Upcoming Encounters Date Type Department Care Team (Late st Contact Info) Description 07/09/2024 Procedure Pass [facility], Ct Scan [address] [address] 11/03/2024 10:30 AM EDT Appointment [facility], [address] [address] Mariana Ceballos MD [address] [place] [address] [email or web address] 11/19/2024 10:00 AM EDT Office [place] [facility] [address] [place] [address], 7th Floor, [address] [place] [address] Mariana Ceballos MD [address] [place] [address] [email or web address] Link Osorio MD 10 [facility] [place] [address] [email or web address] 06/29/2025 10:00 AM EDT Office Visit [facility] Endocrinology [place] [address] [place] [address] Zari Genao MD 22 [facility] 3rd [place] [address] [email or web address] documented as of this encounter [...] documented as of this encounter Care Teams Stockkeeper Relationship Specialty Start Date End Date Barak Hunt DO [address] [place] [address] [email or web address] PCP - General Family Medicine 02/10/18 10/22/23 Barak Hunt DO [address] [place] [address] [email or web address] PCP - General Family Medicine 10/23/23 06/28/24 Geovany Ortez MD [address] [place] [phone] PCP - General Internal Medicine 06/29/24 Jan aDs MD [address] [place] [address] [email or web address] Thoracic Surgery 08/13/17 09/24/17 Thais Wiggins MD, PhD [address] [place] [address] [email or web address] Thoracic Surgery 09/25/17 Lucia Canchola MD [address] [place] [address] [email or web address] Hematology and Oncology 09/25/17 12/04/21 Self-Referred, Patient 09/26/17 Link Osorio MD [address] [place] [address] [email or web address]. TAN Primary Oncologist Medical Oncology 01/24/22 Marycarmen Samaniego, RN [address] [place] [address] [email or web address] Primary Infusion Nurse 01/24/22 12/18/22 Self-Referred, Patient 03/16/22 12/18/22 Danielle Gallegos, ANDREW [address] [place] [address] [email or web address] Primary Infusion Nurse 05/18/22 documented as of this encounter Additional Source Comments The information contained in this document represents components of the legal health record. It is not the complete legal health record.[facility]
--- OUTSIDE RECORDS SUMMARY | 2024-07-14 11:45 | XMS_ITS | Encounter Summary ---
Author Organization [facility] Address [address] [place] [address] [place] [address] Phone Care Team Providers Care Electrode Turner And Finisher Name Role Phone Thais Wiggins MD, PhD Unavailable [phone] Self-Referred, Patient Unavailable Unavailab Barak Torres DO Primary Care Provider [phone] Link Osorio MD Unavailable [phone] Marycarmen Samaniego RN Unavailable Catherine [email or web address] Self-Referred, Patient Unavailable Unavailab Danielle Rivas RN Unavailable [email or web address] Barak Hunt DO Primary Care Provider Geovany Ortez MD Primary Care Provid er Encounter Details Date Type Department Care Team (Late st Contact Info) Description 08/15/2022 Documentation [facility] [address] [facility], 7th Floor, [address] [place] [address] Dorita Pacheco, MIRELLA [address] [place] [address] [email or web address] Social History Tobacco Use Types Packs/Day Years [...] 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 Not on file Not on file documented as of this encounter Plan of Treatment Upcoming Encounters Date Type Department Care Team (Late st Contact Info) Description 07/09/2024 Procedure Pass [address] [address] 11/03/2024 10:30 AM EDT Appointment [address] [address] Mariana Ceballos MD [address] [place] [address] [email or web address] 11/19/2024 10:00 AM EDT Office Visit [facility] [address] [place] [address], 7th Floor, [address] [place] [address] Mariana Ceballos MD [address] [place] [address] [email or web address] Link Osorio MD 10 [facility] [place] [address] [email or web address] 06/29/2025 10:00 AM EDT Office Visit [facility] Endocrinology [address] [phone] Zari Genao MD [address] [address] [email or web address] documented as of this encounter Visit Diagnoses Not on filedocumented in this encounter Care Teams Electrode Turner And Finisher Relationship Specialty Start Date End Date Barak Hunt DO [address] [place] [address] [email or web address] PCP - General Family Medicine 02/10/18 10/22/23 Barak Hunt DO [address] [place] [address] [email or web address] PCP - General Family Medicine 10/23/23 06/28/24 Geovany Ortez MD [address] [place] [phone] PCP - General Internal Medicine 06/29/24 Thais Wiggins MD, PhD [email or web address] Thoracic Surgery 09/25/17 Self-Referred, Patient 09/26/17 Link Osorio MD [address] [place] [address] [address] [email or web address] Primary Oncologist Medical Oncology 01/24/22 Marycarmen Samaniego, ANDREW [address] [place] [address] [address] [email or web address] [place] Primary Infusion Nurse 01/24/22 12/18/22 Self-Referred, Patient 03/16/22 12/18/22 Danielle Gallegos, ANDREW [address] [place] [address] [email or web address] Primary Infusion Nurse 05/18/22 documented as of this encounter Additional Source Comments The information contained in this document represents components of the legal health record. It is not the complete legal health record.[facility]
--- OUTSIDE RECORDS SUMMARY | 2024-07-14 11:46 | XMS_ITS | Encounter Summary ---
Author Organization [facility] Address [address] [place] [address] Phone Care Team Providers Care Patternmaker Plastics Name Role Phone Thais Wiggins MD, PhD Unavailable [phone] Lucia Canchola MD Unavailable [phone] Self-Referred, Patient Unavailable Unavailab Barak Torres DO Primary Care Provider [phone] Link Osorio MD Unavailable [phone] Marycarmen Samaniego RN Unavailable Catherine [email or web address] Self-Referred, Patient Unavailable Unavailab Danielle Rivas RN Unavailable martin @[email or web address] Barak Hunt DO Primary Care Provider [phone] Geovany Ortez MD Primary Care Provid er Encounter Details Date Type Department Care Team (Late st Contact Info) Description 09/05/2021 Procedure Pass [facility] Periop [address] [place] [address] Social History Tobacco Use Types Packs/Day Years [...] Job Start Date Job End 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 Wish to be (Past 1 Month) No 09/05/2021 1:49 PM EDT Kellie Pinzon RN 2. Non-Specific Active Suicidal Thoughts (Past 1 Month) No 09/05/2021 1:49 PM EDT Kellie Pinzon RN 6. Suicidal Behavior (Lifetime) No 09/05/2021 1:49 PM EDT Kellie Pinzon RN documented as of this encounter Plan of Treatment Upcoming Encounters Date Type Department Care Team (Late st Contact Info) Description 07/09/2024 Procedure Pass [address] [address] 11/03/2024 10:30 AM EDT Appointment [address] [address] Mariana Ceballos MD [address] [place] [address] [email or web address] 11/19/2024 10:00 AM EDT Office Visit [facility] Center for Thoracic Oncology [address] [place] [address], 7th Floor, [address] [place] [address] Mariana Ceballos MD [address] [place] [address] [email or web address] Link Osorio MD 10 [facility] [place] [address] [email or web address] 06/29/2025 10:00 AM EDT Office [facility] Endocrinology [address] [address] Zari Genao MD [address] [place] [address] documented as of this encounter Visit Diagnoses [...] documented as of this encounter Care Teams Patternmaker Plastics Relationship Specialty Start Date End Date Barak Hunt DO [address] [place] [address] PCP - General Family Medicine 02/10/18 10/22/23 Barak Hunt DO [address] [place] [address] PCP - General Family Medicine 10/23/23 06/28/24 Geovany Ortez MD [address] [place] [phone] PCP - General Internal Medicine 06/29/24 Thais Wiggins MD, PhD [email or web address]. TAN Thoracic Surgery 09/25/17 Lucia Canchola MD [address] [place] [address] [email or web address] Hematology and Oncology 09/25/17 12/04/21 Self-Referred, Patient 09/26/17 Link Osorio MD [address] [place] [address] [email or web address]. TAN Primary Oncologist Medical Oncology 01/24/22 Marycarmen Samaniego, ANDREW [address] [place] [address] [email or web address] Primary Infusion Nurse 01/24/22 12/18/22 Self-Referred, Patient 03/16/22 12/18/22 Danielle Gallegos, ANDREW [address] [place] [address] [email or web address] Primary Infusion Nurse 05/18/22 documented as of this encounter Additional Source Comments The information contained in this document represents components of the legal health record. It is not the complete legal health record.[facility]
--- OUTSIDE RECORDS SUMMARY | 2024-07-14 11:46 | XMS_ITS | Encounter Summary ---
Author Organization [facility] Address [address] [place] [address] Phone Care Team Providers Care Line Dancer Name Role Phone Thais Wiggins MD, PhD Unavailable [phone] Lucia Canchola MD Unavailable [phone] Self-Referred, Patient Unavailable Unavailab Barak Torres DO Primary Care Provider [phone] Link Osorio MD Unavailable [phone] Marycarmen Samaniego RN Unavailable Catherine [email or web address] Self-Referred, Patient Unavailable Unavailab Danielle Rivas RN Unavailable martin @[email or web address] Barak Hunt DO Primary Care Provider [phone] Geovany Ortez MD Primary Care Provid er Encounter Details Date Type Department Care Team (Late st Contact Info) Description 06/27/2021 Procedure Pass [facility], Ct Scan - [facility] [address] [place] [address] Social History Tobacco Use Types Packs/Day Years [...] 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 Not on file Not on file documented as of this encounter Plan of Treatment Upcoming Encounters Date Type Department Care Team (Late st Contact Info) Description 07/09/2024 Procedure Pass [facility], [address] [address] 11/03/2024 10:30 AM EDT Appointment [address] [address] Mariana Ceballos MD [address] [place] [address] [email or web address] 11/19/2024 10:00 AM EDT Office [place] [facility] [address] [place] [address], 7th Floor, [address] [place] [address] Mariana Ceballos MD [address] [place] [address] [email or web address] Link Osorio MD 10 [facility]304 [place] [address] [email or web address] 06/29/2025 10:00 AM EDT Office Visit [facility] Endocrinology [place] [address] [place] [phone] Zari Genao MD 22 [facility] 3rd [place] [address] [email or web address] documented as of this [...] documented as of this encounter Care Teams Line Dancer Relationship Specialty Start Date End Date Barak Hunt DO [address] [place] [address] [email or web address] PCP - General Family Medicine 02/10/18 10/22/23 Barak Hunt DO [address] [place] [address] @[facility] PCP - General Family Medicine 10/23/23 06/28/24 Geovany Ortez MD [address] [place] [phone] PCP - General Internal Medicine 06/29/24 Thais Wiggins MD, PhD [email or web address] Thoracic Surgery 09/25/17 Lucia Canchola MD [address] [place] [address] [email or web address] Hematology and Oncology 09/25/17 12/04/21 Self-Referred, Patient 09/26/17 Link Osorio MD [address] [place] [address] [address] [email or web address]. TAN Primary Oncologist Medical Oncology 01/24/22 Marycarmen Samaniego, ANDREW [address] [place] [address] [address] [email or web address] Primary Infusion Nurse 01/24/22 12/18/22 Self-Referred, Patient 03/16/22 12/18/22 Danielle Gallegos, ANDREW [address] [place] [address] [email or web address] Primary Infusion Nurse 05/18/22 documented as of this encounter Additional Source Comments The information contained in this document represents components of the legal health record. It is not the complete legal health record.[facility]
--- OUTSIDE RECORDS SUMMARY | 2024-07-14 11:46 | XMS_ITS ---
Author Organization [facility] Address [address] [place] [id number] Phone Care Team Providers Care Power Mule Operator Name Role Phone Thais Wiggins MD, PhD Unavailable [phone] Self-Referred, Patient Unavailable Unavailab Link Prakash MD Unavailable [phone] Danielle Gallegos RN Unavailable [email or web address] Geovany Ortez MD Primary Care Provid er Active Problems Problem Noted Date Diagnosed Date Drug-induced constipation 02/22/2022 Nausea 02/22/2022 S/P laparoscopic-assisted sigmoidectomy 09/06/19 22 Osteoarthritis 08/30/2021 Diverticulitis 08/30/2021 Left inguinal hernia 04/20/2019 Malignant neoplasm of middle lobe of right lung 09/06/2017 Cancer Staging:Clinical: Unsigned Pathologic stage from 09/26/2017:Stage IB(pT2a, pN0, cM0) - Signed by Lucia Canchola MD on 09/26/2017 Assessment & Plan (07/09/2024 12:47 PM EDT): Krishna Ornelas is a 73 y.o. 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 [...] durvalumab consolidation, so we can start to space apart her scans - Repeat CT chest in 4 months for ongoing surveillance, and after that, will space apart to every 6 months # Rash: concerning for vitiligo, overall improved from prior - Prior biopsy confirmed findings consistent with vitiligo - continue topical treatment with Opzelura prescribed by her local supervisor brine #GERD - Pepcid BID #Hypothyroid- - Currently on synthroid 75 mcg daily - Seeing carbonation tester regularly, with TFTs in 06/2024 wnl # Left hip osteoarthritis - s/p L hip replacement Assessment & Plan (12/19/2023 6:12 PM EDT): Krishna Ornelas is a 72 y.o. 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 # NSCLC - She now presents for follow-up - Completed durvalumab in Mar 2023 - Repeat CT chest from 12/12/23, which we have personally reviewed, show no evidence of new or progressive disease, with 4 mm RLL nodule unchanged from last scan. Great news! - She will be in [place] from December 2023 through end May 2024. She will get surveillance chest CT in mid/late February with Dr. Black in [facility] in [place], [place], and will plan to get a CT chest in early June 2024 with us. She'll reach out to schedule this once getting ready to return here. - She will reach out to us to schedule follow-up in June 2024 and will bring the scan images with her at that time # Rash: concerning for vitiligo, overall improved from prior - Prior biopsy confirmed findings consistent with vitiligo - continue topical treatment with Opzelura prescribed by her local supervisor brine #GERD - Pepcid BID #Hypothyroid- - Currently on synthroid 75 mcg daily (recently reduced from 88 mcg daily by her carbonation tester) - Seeing endocrine regularly # Left hip osteoarthritis - s/p L hip replacement Assessment & Plan (07/06/2023 12:47 PM EDT): Krishna Onrelas is a 72 y.o. 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 # NSCLC - She now returns after moving back to the [facility] for the summer. - Completed durvalumab in Mar 2023 - Repeat scans, which I have personally reviewed, show a new 5 mm nodule but otherwise no evidence of new or progressive disease. - Repeat chest CT in 3 months # Rash: concerning for vitiligo - now s/p biopsy; awaiting pathology - has follow-up with dermatology next week #GERD - Pepcid BID #Hypothyroid- - Currently on synthroid 100 mcg daily - Last TSH was low - Seeing endocrine next month at which time she'll have a repeat check # Left hip osteoarthritis - s/p L hip replacement Assessment & Plan (12/27/2022 6:28 AM EDT): Krishna Ornelas is a 72 y.o. 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 # NSCLC - Labs reviewed and are appropriate for continued treatment. - Proceed with durvalumab on a Q4 week schedule. - Repeat chest CT, which I have personally reviewed, show no evidence of new or recurrent disease. - Of note she plans to be in [place] starting in early December. I will refer her to Dr. Black in the [place] area. #GERD - Pepcid BID #Hypothyroid- will follow closely on IO - Synthroid dose recently increase from 75 mcg to 100 mcg in late July - Repeat TSH WNL at last visit but at lower limit of normal; monitor again in 3 months # Constipation: - Continue senna 2 Tabs QPM. - Recommended miralax # Left hip osteoarthritis - s/p L hip replacement Assessment & Plan (11/15/2022 6:43 PM EDT): Krishna Ornelas is a 72 y.o. 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 # NSCLC - Labs reviewed and are appropriate for continued treatment. - Proceed with durvalumab on a Q4 week schedule. - Repeat chest CT in late November - Of note she plans to be in [place] starting in early December. I will refer her to Dr. Black in the [place] area at the next visit. #GERD - Pepcid BID #Hypothyroid- will follow closely on IO - Synthroid dose recently increase from 75 mcg to 100 mcg in late July - Repeat TSH WNL at last visit but at lower limit of normal; monitor again in 3 months # Constipation: - Continue senna 2 Tabs QPM. - Recommended miralax # Left hip osteoarthritis - s/p L hip replacement Assessment & Plan (10/18/2022 6:01 PM EDT): Krishna Ornelas is a 72 y.o. 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 # NSCLC - Labs reviewed and are appropriate for continued treatment. - Proceed with durvalumab on a Q4 week schedule. - Repeat chest CT in late November - Of note she plans to be in [place] starting in early December. I will refer her to Dr. Black in the [place] area. #GERD - Pepcid BID #Hypothyroid- will follow closely on IO - Synthroid dose recently increase from 75 mcg to 100 mcg in late July - Repeat TSH WNL today but at lower limit of normal; monitor again in 3 months # Constipation: - Continue senna 2 Tabs QPM. - Recommended miralax # Left hip osteoarthritis - s/p L hip replacement Assessment & Plan (09/20/2022 4:09 PM EDT): Krishna Ornelas is a 71 y.o. 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 Restaging CT chest today demonstrates stable disease and resolution of the previously seen PNA/ aspiration. Krishna is feeling well today but does have moderate fatigue and low appetite from 7-10 days following treatment. Her weight is reassuringly stable. # NSCLC - Labs reviewed and are appropriate for continued treatment. - Proceed with durvalumab on a Q4 week schedule. - Repeat chest CT in late November - Of note she plans to be in [place] starting 12/26 and would like to receive her treatment at [facility] in [place]. #GERD - Increase pepcid to BID #Hypothyroid- will follow closely on IO - Synthroid dose recently increase from 75 mcg to 100 mcg in late July (local labs) - Would repeat TSH in late September # Constipation: - Continue senna 2 Tabs QPM. - Recommended miralax over metamucil # Left hip osteoarthritis - s/p L hip replacement Assessment & Plan (08/23/2022 4:18 PM EDT): Krishna Ornelas is a 71 y.o. 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 # NSCLC - Labs reviewed and are appropriate for continued treatment. - Proceed with durvalumab on a Q4 week schedule. - Repeat chest CT prior to next visit #Hypothyroid- will follow closely on IO - Synthroid dose recently increase from 75 mcg to 100 mcg in late July - Would repeat TSH in late September # Constipation: - Continue senna # Left hip osteoarthritis - s/p L hip replacement Assessment & Plan (07/26/2022 10:46 PM EDT): Krishna Ornelas is a 71 y.o. 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 She was seen earlier this week for viral symptoms that have since resolved. She is ready for treatment today. # NSCLC - Labs reviewed and are appropriate for continued treatment. - Proceed with durvalumab on a Q4 week schedule. - Repeat chest CT in Oct. #Hypothyroid- will follow closely on IO - Continue home synthroid 75mcg/day - Baseline TSH WNL # Constipation: - Continue senna # Left hip osteoarthritis - s/p L hip replacement Assessment & Plan (07/24/2022 3:30 PM EDT): Krishna Ornelas is a 71 y.o. 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 Here urgently today for nausea, runny nose, malaise for last three days. She has had intermittent shortness of breath for months. Rapid COVID test at home negative--will send PCR today along with RSV and Flu IVF in clinic CXR negative for Pnuemonia; acute process Suspect this is a viral process. Will follow up tomorrow morning with viral panel results. Will return . Assessment & Plan (07/04/2022 4:54 PM EDT): Krishna Ornelas is a 71 y.o. 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 # NSCLC - Repeat scans, which I have personally reviewed and discussed with [facility] radiology, show no evidence of new or progressive disease. Great news! - She is tolerating durvalumab well. We will therefore transition to q4 week dosing. - Labs reviewed and acceptable to proceed with durva today. - Repeat chest CT in 3-4 months. #Hypothyroid- will follow closely on IO - Continue home synthroid 75mcg/day - Baseline TSH WNL # Constipation: - Continue senna # Left hip osteoarthritis - s/p L hip replacement Assessment & Plan (06/18/2022 9:43 PM EDT): Krishna Ornelas is a 71 y.o. 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 # NSCLC - Last dose of durva delayed due to upcoming hip replacement. She is now s/p the procedure and recovering well. - She describes cough/PICKETT for ~7-10 days post-procedure. We reviewed risk of pneumonitis after chemoradiation and with durva. As her symptoms have resolved, will proceed cautiously with durva today but move up her scans to get a better evaluation of the lung parenchyma. - Labs reviewed and are appropriate for continued durvalumab 10mg/kg [id number] (note: she prefers to hold off on moving to monthly dosing for now). - Repeat chest CT as above. #Hypothyroid- will follow closely on IO - Continue home synthroid 75mcg/day - Baseline TSH WNL # Constipation: - Continue senna # Left hip osteoarthritis - s/p L hip replacement Assessment & Plan (05/24/2022 6:40 AM EDT): Krishna Ornelas is a 71 y.o. 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 - Anticipate scans Q3 months. #Hypothyroid- will follow closely on IO - Continue home synthroid 75mcg/day - Baseline TSH today # Constipation: - Continue senna # Left hip osteoarthritis - Anticipated hip replacement in June at [facility] Assessment & Plan (05/18/2022 2:10 PM EDT): Krishna Ornelas is a 71 y.o. 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 She completed radiation chemotherapy and had restaging CT chest that demonstrated response to therapy, great news! She is here today to continue durvalumab. Krishna notes increased fatigue and lower appetite recently. I suspect there are contributions from recent chemotherapy/RT, right hip pain that affects her activity level and current therapy. She has hip surgery scheduled for 06/04/22 # NSCLC - Labs reviewed and are appropriate for continued durvalumab 10mg/kg [id number] - We will skip her next dose in 2 weeks due to hip surgery - Return to clinic June 15 and we will consider changing to monthly dosing at that time. - Anticipate scans Q3 months. #Hypothyroid- will follow closely on IO - Continue home synthroid 75mcg/day - Baseline TSH WNL # Constipation: - Continue senna # Left hip osteoarthritis - Hip replacement June 04 at [facility] Assessment & Plan (05/03/2022 6:21 AM EST): Krishna Ornelas is a 71 y.o. 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 # NSCLC - Now s/p definitive chemoradiation. - Repeat scans, which I have personally reviewed, show interval decrease in size of the previously noted R hilar node with no evidence of new or progressive disease. Great news! - We spent much of the visit reviewing next steps. Standard of care after definitive chemoradiation is consolidation durvalumab. While she technically has stage II disease and therefore would not have been a candidate for the Arnold trial, I also explained that PD-1 pathway inhibitors are now being used for stage II disease as both neoadjuvant and adjuvant therapy. Therefore, I would recommend consolidation durva. - We reviewed the rationale, logistics and common AEs associated with durva. - Plan to start in the next week or so. #Thrush - nystatin suspension # Constipation: - Continue senna # Nausea: - Compazine most effective Assessment & Plan (04/20/2022 2:42 PM EST): Krishna Ornelas is a 71 y.o. 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 She completed radiation chemotherapy and had restaging CT chest that demonstrated response to therapy, great news! She is here today to being consolidative durvalumab. # NSCLC - We reviewed the rational, schedule and expected and possible side effects of treatment with durvalumab. Informed consent was obtained and the patient was given a copy of the signed consent form. - Labs reviewed and notable for recovered blood counts - Proceed with durvalumab 10mg/kg [id number] with plans to move to Q4 week dosing if well tolerated. - OK to stop folic acid - Anticipate scans Q3 months. #Hypothyroid- will follow closely on IO - Continue home synthroid 75mcg/day - Baseline TSH today # Constipation: - Continue senna # Left hip osteoarthritis - Anticipated hip replacement in June at [facility] Assessment & Plan (03/29/2022 11:10 PM EST): Krishna Ornelas is a 71 y.o. 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 - Labs reviewed and notable for mild anemia to Hb ~11 and PLT 100 - Daily RT ongoing, due to finish next week - B12 Q9 weeks and daily folic acid. - Zofran and compazine PRN. - Scan a week after completing RT and anticipate starting durvalumab soon thereafter. #Thrush - nystatin suspension # Constipation: - Continue senna # Nausea: - Compazine most effective Assessment & Plan (03/15/2022 2:14 PM EST): Krishna Ornelas is a 71 y.o. 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 - Labs reviewed and notable for mild anemia to Hb ~11 - Daily RT ongoing, due to finish in Mar - B12 Q9 weeks and daily folic acid. - Dexamethasone schedule reviewed. - Zofran and compazine PRN. - Return to clinic in 2 weeks #Thrush - nystatin suspension # Constipation: - Continue senna # Nausea: - Compazine most effective Assessment & Plan (03/08/2022 7:52 PM EST): Krishna Ornelas is a 71 y.o. 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 - Labs reviewed and notable for mild thrombocytopenia, PLT 91K, ANC stable from last week. - Daily RT ongoing - B12 Q9 weeks and daily folic acid. - Dexamethasone schedule reviewed. - Zofran and compazine PRN. - Return to clinic in 1 week for consideration of C3 #Thrush -nystatin suspension # Constipation: - Continue senna-S - Advised that she may need to intensify this around chemo infusions # Nausea: - She used compazine first to minimize constipation risk and this was effective. Assessment & Plan (03/01/2022 9:54 PM EST): Krishna Ornelas is a 71 y.o. 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 - Labs reviewed and notable for lower WBC with stable ANC. Other labs unremarkable. - Daily RT ongoing - B12 Q9 weeks and daily folic acid. - Dexamethasone schedule reviewed. - Zofran and compazine PRN. - Clinical check-in in 1 week #Thrush - start nystatin suspension, does not need magic mouth wash # Constipation: - Continue senna-S - Advised that she may need to intensify this around chemo infusions # Nausea: - She used compazine first to minimize constipation risk and this was effective. Assessment & Plan (02/28/2022 10:06 PM EST): Krishna Ornelas is a 71 y.o. 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 Surgical options were explored and results from the V/Q scan and PFTs make a surgical approach too high risk. Krishna is here today C1D8 carboplatin/pemetrexed definitive chemo/RT followed by consolidative durvalumab. She had expected side effects of mild nausea, fatigue after stopping dexamethasone taper and constipation followed by loose stools. Plan: -Here today C1D8 -Labs reviewed and demonstrate stable blood counts -Reviewed bowel regimen with senna. - B12 Q9 weeks and daily folic acid. - Dexamethasone schedule reviewed. - Zofran and compazine PRN. - RT schedule will begin closer to C2 - Weekly visits once radiation begins. - Questions answered, support provided. Assessment & Plan (02/22/2022 9:26 AM EST): Krishna Ornelas is a 71 y.o. 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 - Daily RT ongoing - B12 Q9 weeks and daily folic acid. - Dexamethasone schedule reviewed. - Zofran and compazine PRN. - Clinical check-in in 1 week # Constipation: - Continue senna-S - Advised that she may need to intensify this around chemo infusions # Nausea: - She'll try compazine first to minimize constipation risk Assessment & Plan (02/05/2022 5:05 PM EST): Krishna Ornelas is a 71 y.o. 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 Surgical options were explored and results from the V/Q scan and PFTs make a surgical approach too high risk. Today, we discussed definitive chemo/RT followed by consolidative durvalumab. Krishna met with Dr. James from radiation oncology as part of our visit today. Plan: -We reviewed the rational, schedule and expected and possible side effects of treatment with carboplatin/pemetrexed. Informed consent was obtained and the patient was given a copy of the signed consent form. - Labs reviewed and are appropriate to begin treatment with carboplatin AUC5, pemetrexed 500mg/m2. - Daily RT will be added in as soon as planning takes place. - B12 Q9 weeks and daily folic acid. - Dexamethasone schedule reviewed. - Zofran and compazine PRN. - Local labs and virtual follow up in 1 week. - Questions answered, support provided. Assessment & Plan (02/01/2022 7:14 AM EST): Krishna Ornelas is a 71 y.o. 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 Ornelas, she has completed her staging evaluation and there are no additional sites of disease. Thus, she has a cTxN1 recurrence. We presented her case at thoracic tumor board, and the consensus was to pursue neoadjuvant chemoimmunotherapy followed by resection if feasible. We spent most of the visit reviewing the rationale, logistics and common adverse events with neoadjuvant chemoIO. Specifically, I'd recommend a regimen of carbo/pemetrexed/nivo. I'd favor carbo over cis given her tinnitus and hearing loss. Recommendations: - Vitamin B12 and folate per protocol. - Prescriptions provided for dex, compazine and zofran - ICF signed - Anticipate starting therapy next week Assessment & Plan (01/25/2022 6:42 AM EST): Krishna Ornelas is a 71 y.o. 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 We discussed two main options: induction chemo-immunotherapy followed by surgical resection versus definitive chemoradiation followed by consolidation immunotherapy. We will complete her staging as below and present her case at tumor board to decide on a definitive plan. Recommendations: - Brain MRI - Tissue NGS on biopsy - Mediastinal staging of contralateral mediastinum - Tumor board review of her case this Saturday - RTC after the above. - All questions and concerns addressed. Migraine headache 02/28/2012 Hyperlipidemia Chronic obstructive pulmonary disease Hypertensive disorder Postablative hypothyroidism Assessment & Plan (06/29/2024 5:39 PM EDT): Reports good consistency taking rx appropriately. Will check levels & adjust rx as appropriate. Assessment & Plan (08/19/2023 2:36 PM EDT): TSH has recently been low. Reports good consistency taking rx appropriately. Will lower synthroid from 100 to 88 mcg daily & repeat labs in 6-8 weeks, sooner prn symptoms of thyroid dysfunction or > 10-15# weight change, or as otherwise clinically indicated. Assessment & Plan (12/17/2022 12:32 PM EDT): Clinically & biochemically euthyroid following dose increase in response to elevated TSH in July. Reports good consistency taking rx appropriately. Will be monitoring levels via oncology per protocal d/t immunotherapy, sooner prn symptoms of thyroid dysfunction or > 10-15# weight change, or as otherwise clinically indicated. Age-related osteoporosis wit jordan current pathological fracture Overview (12/17/2022): Hairline fx humerus, left, after fall. Mother w/ hx hip fx. Alendronate x ~ 5 yrs in 2022 Assessment & Plan (06/29/2024 5:40 PM EDT): Clinically stable. No recent falls or fractures. Getting a good amount of calcium in via diet. Off vitamin D supplement d/t level previously being elevated after wintering in [facility]. Will include level with labs to ensure level adequate. Seeing dentist regularly. Last bone density stable in spine, hip not compared assume due to changing hip measured due to having had THR. Will repeat bone density over the summer. To call us when done so we can track down result. Assessment & Plan (08/19/2023 2:39 PM EDT): Clinically stable. No recent falls or fractures. Getting a good amount of calcium in via diet. Off vitamin D supplement d/t level previously being elevated after wintering in [place]. Will include level with upcoming labs to ensure adequate. Seeing dentist regularly. Has been on rx ~ 5 yrs. Last bone density stable in spine, hip not compared assume due to changing hip measured due to having had THR. Would favor drug holiday once has been on for 5 yrs. Reviewed normal bone physiology across the lifespan. Reviewed role of adequate calcium & vitamin D, exercise, avoiding falls. Discussed risks/benefits of bisphosphonates & concept of/rational for a drug holiday . Will hold rx for now & monitor bone density next year. Will check vitamin D w/ upcoming labs. Would add ~ 400-600 mg calcium via supplement once daily. Assessment & Plan (12/17/2022 12:37 PM EDT): Clinically stable. No recent falls or fractures. Getting a good amount of calcium in via diet. Off vitamin D supplement d/t level previously being elevated after wintering in [place]. Would include level with upcoming labs to ensure adequate. Seeing dentist regularly. Has been on rx ~ 5 yrs w/ improvement in recent bone density per her recollection. She will double check when she started rx. We will call for bone density reports. Would favor drug holiday once has been on for 5 yrs. Reviewed normal bone physiology across the lifespan. Reviewed role of adequate calcium & vitamin D, exercise, avoiding falls. Discussed risks/benefits of bisphosphonates & concept of/rational for a drug holiday . Current Treatment and Therapy Plans No current plan information found. Past Treatment and Therapy Plans TREATMENT PLAN Plan Name Start Date Discontinue Date Treatment Medications Discontinue Reason Plan Provider Cycles DURVALUMAB 1500 MG Q4W 06/28/2022 02/01/2024 durvalumab (IMFINZI) 1500 mg/140 mLdurvalumab (IMFINZI) IVPB Bag a. Therapy Complete Link Osorio MD 7 of 7 cycles started Durvalumab 10 mg/kg Q2W 3 06/28/2022 durvalumab (IMFINZI) IVPB Bag e. Reapplying Amended Protocol / Plan Link Osorio MD 2 of 2 cycles started PEMETREXED/CA RBOPLATIN-THO RACIC 2 04/13/2022 CARBOplatin (PARAPLATIN)CAR BOplatin (PARAPLATIN) IVPB (by AUC) 270 mLPEMEtrexed (ALIMTA) IVPB a. Therapy Complete Link Osorio MD 3 of 5 cycles started Resolved Problems Problem Noted Date Diagnosed Date Resolved Date Lung nodule 08/21/2017 09/25/2017 Solitary pulmonary nodule 08/16/2017
--- OUTSIDE RECORDS SUMMARY | 2024-07-14 11:47 | XMS_ITS ---
Author Organization [facility] Address [address] [place] [address] Care Team Providers Care Print Project Manager Name Role Phone Geovany Ortez Primary Care Provider Darvin Latif Jr Unavailable [phone] Allergies Allergen (clinical drug ingredient) Drug/Non Drug Allergy documented on EMR Reaction Allergy Type Onset Date Status Substance with sulfonamide structure and antibacterial mechanism of action (substance) Sulfa Antibiotics Unknown Drug Allergy Active lisinopril Lisinopril Unknown Drug Allergy Activ e MiraLax Unknown Drug Allergy Active REASON FOR VISIT Patient presents today for a colon recall Medications Medication SIG (Take, Route, Frequency, Duration) Notes Start Date End Date Status ProAir RespiClick 108 (90 Base) MCG/ACT 1 puff as needed Inhalation every 4 hrs 07/06/2024 Active Levothyroxine Sodium 75 MCG 1 tablet in the morning on an empty stomach Orally Once a day for 30 day(s) 07/06/2024 Active Sutab 0083-209-397 MG [address] dose the evening before and second dose the morning of colonoscopy Orally Twice a day for 1 days 07/06/2024 Active Tretinoin 0.025 % 1 application in the evening to face Externally Once a day 07/06/2024 Active valACYclovir HCl 500 MG 1 tablet Orally Once a day for 10 day(s) 07/06/2024 Active hydroCHLOROthiazide 12.5 MG 1 capsule in the morning Orally Once a day for 30 day(s) 07/06/2024 Active Bacillus Coagulans-Inulin - as directed Orally 01/2025 Active Fluticasone Propionate 50 MCG/ACT 1 spray in each nostril Nasally Twice a day for 30 day(s) 07/06/2024 Active Atorvastatin Calcium 10 MG 1 tablet Oral ly Once a day for 30 day(s) 07/06/2024 Active Social History Tobacco Use: Social History Observation [...] Problem Screening for malignant neoplasm of colon (594015717) Encounter for screening for malignant neoplasm of colon (Z12.11) Active confirmed Problem H/O: high risk medication (946999148) High risk medication use (Z79.899) Active confirmed Vital Signs Temperature 98.4 degrees Fahrenheit 07/07/19 25 Blood pressure systolic 001 mm Hg 07/07/19 25 Blood pressure diastolic 01 mm Hg 025 Height 66 in 07/06/2024 Weight 124.4 lbs 07/06/2024 BMI 20.08 kg/m2 07/06/2024 Encounters Encounter [facility] Date [facility] [address] [place] [phone] 07/06/2024 Darvin Morgan Jr Encounter for screening [...] day before the procedure. Plan Of Treatment Medication Medication Name Sig Start Date Stop Date Notes Sutab 5799-311-597 MG [address] dose the evening before and second dose the morning of colonoscopy Orally Twice a day for 1 days 07/06/2024 Future Test Test Name Order Date COLONOSCOPY 07/06/2024 Next Appt Details Follow Up: 1 Year, Reason: Provider Name:Darvin finnegan , 08/04/2024 10:00:00 AM, [address] [place] [address] , [place], [place], [id number], Progress Notes * GERMANIA UGARTEOB:[birth year] (73 yo F)Acc No.[id number]:07/06/2024 Progress Notes Patient:?EMORY UGARTE Provider:?Darvin Morgan MD :1950???Age:73 Y???Sex:Female D ate:07/06/2024 Address:[facility] [place] [address] [facility] Pcp:Geovany Ortez Subjective: * Chief Complaints: * ???1. Patient presents today for a colon recall. * HPI: ???New symptom(s):? Angie is a pleasant 73-year-old woman seen today for her preoperative colonoscopy visit. She has no complaints of rectal bleeding or change in her bowel habits. Weight and appetite have been stable. She takes milk of magnesia as needed for constipation. She tried MiraLAX but this made her sick. She did have sigmoid resection for diverticular disease in August 2021. We reviewed laboratory results and operative notes in detail today. * ROS:?General/Constitutional:?Change in appetite?denies.?Fatigue?denies.?ENT:?Patient denies?difficulty swallowing.?Respiratory:?Patient denies?shortness of breath.?Cardiovascular:?Patient denies?chest pain.?Gastrointestinal:?Comments?See HPI for details.?Genitourinary:?Difficulty urinating?denies.?Incontinence?denies.?Musculoskeletal:?Patient denies?muscle aches.?Skin:?Patient denies?pruritis.?Neurologic:?Patient denies?low back pain.?Psychiatric:?Patient denies?mental or physical abuse.? * Medical History:?Anxiety, Ar thritis, COPD, Diverticulitis, Hyperlipidemia, Hypertension, Hypothyroidism, Lung cancer. * Surgical History:?inguinal h ernia repair , lung resection , wisdom teeth extraction , Sigmoid resection 08/2021 for diverticular disease. . * Family History:?Father: dece ased.?Mother: , diagnosed with Colon polyps, Colon cancer.? No family history of liver cancer. * Social History:?Tobacco Use:?Tobacco Control (Standard)?Tobacco use:?Nonsmoker.?Miscellaneous:?Marital status: . Occupation: retired. ???Drug/Alcohol:?AUDIT-C (Standard)?Did you have a drink containing alcohol in the past year??No,?Points?0,?Interpretation?Negative.? * Medications:?Taking Atorvast atin Calcium 10 MG Tablet 1 tablet Orally Once a day , Taking Bacillus Coagulans-Inulin - Capsule as directed Orally , Taking Fluticasone Propionate 50 MCG/ACT Suspension 1 spray in each nostril Nasally Twice a day , Taking hydroCHLOROthiazide 12.5 MG Capsule 1 capsule in the morning Orally Once a day , Taking Levothyroxine Sodium 75 MCG Tablet 1 tablet in the morning on an empty stomach Orally Once a day , Taking ProAir RespiClick 108 (90 Base) MCG/ACT Aerosol Powder Breath Activated 1 puff as needed Inhalation every 4 hrs , Taking Tretinoin 0.025 % Cream 1 application in the evening to face Externally Once a day , Taking valACYclovir HCl 500 MG Tablet 1 tablet Orally Once a day * Allergies:?Sulfa Antibiotics , MiraLax, Lisinopril. Objective: * Vitals:?Wt: 124.4 lbs, Ht: 6 6 in, BMI: 20.08 Index, BP: 001/01 mm Hg, Temp: 98.4, Ht-cm: 167.64, Wt-k.43. * Examination: ???General Examination: ?GENERAL APPEARANCE:?in no acute distress.?HEAD:?normocephalic.?EYES:?sclera non-icteric.?ORAL CAVITY:?mucosa moist.?NECK/THYROID:?no lymphadenopathy.?SKIN:?anicteric.?HEART:?S1, S2 normal, no murmurs.?LUNGS:?clear to auscultation bilaterally.?CHEST:?normal shape and expansion.?ABDOMEN:?soft, nontender, nondistended, bowel sounds present, no organomegaly .?EXTREMITIES:?no clubbing, cyanosis, or edema.?PSYCH:?cognitive function intact.? Assessment: * Assessment: 1.?High risk medication use - Z79.899 (Primary)???2.?Encounter for screening for malignant neoplasm of colon - Z12.11??? At this time, she appears to be doing well. We discussed colonoscopy today including risks and benefits of the procedure. She understands these and agrees to proceed she is advised to stop diuretics the day before the procedure. Plan: * Treatment: * Procedure Codes:?3017F COLOR ECTAL CA SCREEN DOC REV, 1036F TOBACCO NON-USER, G8785 BP SCR NOT PRFRM REC REASON NOS * Preventive Medicine:? ??Urinary Incontinence:?Urinary Incontinence?Assessment:?Present,?Plan of care documented:?Yes,?Type of plan of care:?Bladder training.? ??Screenings:?Fall Risk Screening?Fall Risk Assessment:?No falls in the past year,?Screening:?No falls in the past year,?Assessment:?Not performed, no reason specified,?Plan of Care:?Not documented, no reason specified.? * Follow Up:?1 Year * * Sign off status: Completed true * Provider:?Darvin Morgan MD Date:?0 07/06/2024 Generated for Derrek cardenas/Faye/Rowansmitting on:?07/14/2024 11:47 AM EDT History and Physical Notes * HPI (History of Present Illness) Category Sub-Category Detail Notes Category Not es New symptom(s) Angie is a pl easant 73-year-old woman seen today for her preoperative colonoscopy visit. She has no complaints of rectal bleeding or change in her bowel habits. Weight and appetite have been stable. She takes milk of magnesia as needed for constipation. She tried MiraLAX but this made her sick. She did have sigmoid resection for diverticular disease in August 2021. We reviewed laboratory results and operative notes in detail today. Examination Category Sub-Category Detail Notes Category Not es General Examination GENERAL APPEARANCE: in no acute di stress HEAD: normocephalic EYES: sclera non-icteric NECK/THYROID: no lymphadenopathy HEART: S1, S2 normal, no mu rmurs CHEST: normal shape and exp ansion LUNGS: clear to auscultatio n bilaterally ABDOMEN: soft, nontender, non distended, bowel sounds present, no organomegaly SKIN: anicteric EXTREMITIES: no clubbing, cyanosi s, or edema PSYCH: cognitive function i ntact ORAL CAVITY: mucosa moist
--- OUTSIDE RECORDS SUMMARY | 2024-07-14 11:48 | XMS_ITS | Encounter Summary ---
Author Organization [facility] Address [address] [place] [phone] Phone Care Team Providers Care Customer Supply Coordinator Name Role Phone Thais Wiggins MD, PhD Unavailable [phone] Lucia Canchola MD Unavailable [phone] Self-Referred, Patient Unavailable Unavailab Barak Torres DO Primary Care Provider [phone] Link Osorio MD Unavailable [phone] Marycarmen Samaniego RN Unavailable [email or web address] Self-Referred, Patient Unavailable Unavailab Danielle Rivas RN Unavailable [email or web address] Barak Hunt DO Primary Care Provider [phone] Geovany Ortez MD Primary Care Provid er Encounter Details Date Type Department Care Team (Late st Contact Info) Description 01/05/2020 Procedure Pass [facility], Ct Scan - [facility] [address] [place] [address] Social History Tobacco Use Types Packs/Day Years [...] 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 on file Not on file Not on file documented as of this encounter Plan of Treatment Upcoming Encounters Date Type Department Care Team (Late st Contact Info) Description 07/09/2024 Procedure Pass [facility], [facility] [address] [place] [address] 11/03/2024 10:30 AM EDT Appointment [address] [address] Mariana Ceballos MD [address] [place] [phone] [email or web address] 11/19/2024 10:00 AM EDT Office Visit [facility] [address] [place] [address], 7th Floor, [address] [place] [address] Mariana Ceballos MD [address] [place] [address] [email or web address] Link Osorio MD [address] [place] [address] [facility] [place] [address] [email or web address] 06/29/2025 10:00 AM EDT Office Visit [facility] Endocrinology [place] [address] [place] [phone] Zari Genao MD 22 [facility] 3[address] [place] [address] [email or web address] documented as of this encounter Visit Diagnoses [...] documented as of this encounter Care Teams Customer Supply Coordinator Relationship Specialty Start Date End Date Barak Hunt DO [address] [place] [address] [email or web address] PCP - General Family Medicine 02/10/18 10/22/23 Barak Hunt DO [address] [place] [email or web address] PCP - General Family Medicine 10/23/23 06/28/24 Geovany Ortez MD [address] [place] [phone] PCP - General Internal Medicine 06/29/24 Thais Wiggins MD, PhD [email or web address] Surgery 09/25/17 Lucia Canchola MD [address] [place] [phone] [email or web address] Hematology and Oncology 09/25/17 12/04/21 Self-Referred, Patient 09/26/17 Link Osorio MD [address] [place] [address] [address] [email or web address] Primary Oncologist Medical Oncology 01/24/22 Marycarmen Samaniego, ANDREW [address] [place] [address] [address] [email or web address] Primary Infusion Nurse 01/24/22 12/18/22 Self-Referred, Patient 03/16/22 12/18/22 Danielle Gallegos, ANDREW [address] [place] [address] [email or web address] Primary Infusion Nurse 05/18/22 documented as of this encounter Additional Source Comments The information contained in this document represents components of the legal health record. It is not the complete legal health record.[facility]
--- OUTSIDE RECORDS SUMMARY | 2024-07-14 11:48 | XMS_ITS | Encounter Summary ---
Author Organization [facility] Address [address] [place] [phone] Phone Care Team Providers Care Bus Steward Name Role Phone Thais Wiggins MD, PhD Unavailable [phone] Self-Referred, Patient Unavailable Unavailab Barak Torres DO Primary Care Provider [phone] Link Osorio MD Unavailable [phone] Marycarmen Samaniego RN Unavailable [email or web address] Self-Referred, Patient Unavailable Unavailab Danielle Rivas RN Unavailable [email or web address] Barak Hunt DO Primary Care Provider [phone] Geovany Ortez MD Primary Care Provid er Encounter Details Date Type Department Care Team (Late st Contact Info) Description 10/18/2022 Procedure Pass [facility] [place] [address] [facility], 6th [place] [address] Social History Tobacco Use Types Packs/Day Years [...] 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 Not on file Not on file documented as of this encounter Plan of Treatment Upcoming Encounters Date Type Department Care Team (Late st Contact Info) Description 07/09/2024 Procedure Pass [address] [address] 11/03/2024 10:30 AM EDT Appointment [address] [address] Mariana Ceballos MD [address] [place] [address] [email or web address] 11/19/2024 10:00 AM EDT Office Visit [facility]cology [address] [place] [address], 7th Floor, [address] [place] [address] Mariana Ceballos MD [address] [place] [address] [email or web address] Link Osorio MD 10 [facility] [place] [address] [email or web address] 06/29/2025 10:00 AM EDT Office Visit [facility] Endocrinology [address] [place] [address] Zari Genao MD 22 [facility] 3rd [place] [address] [email or web address] documented as of this encounter Visit Diagnoses Not on filedocumented in this encounter Care Teams Bus Steward Relationship Specialty Start Date End Date Barak Hunt DO [address] [place] [address] [email or web address] PCP - General Family Medicine 02/10/18 10/22/23 Barak Hunt DO [address] [place] [address] [email or web address] PCP - General Family Medicine 10/23/23 06/28/24 Geovany Ortez MD [address] [place] [phone] PCP - General Internal Medicine 06/29/24 Thais Wiggins MD, PhD [email or web address] Thoracic Surgery 09/25/17 Self-Referred, Patient 09/26/17 Link Osorio MD [address] [place] [address] [address] [email or web address] Primary Oncologist Medical Oncology 01/24/22 Marycarmen Samaniego RN [address] [place] [address] [address] [email or web address] Primary Infusion Nurse 01/24/22 12/18/22 Self-Referred, Patient 03/16/22 12/18/22 Danielle Gallegos RN [address] [place] [address] Primary Infusion Nurse 05/18/22 documented as of this encounter Additional Source Comments The information contained in this document represents components of the legal health record. It is not the complete legal health record.[facility]
[2024-07-31 13:28] VITALS: BMI 20.1
--- NOTE | 2024-08-03 08:58 | HO.ANESPROP2 ---
Documented by User: Keisha Maciel NP 08/03/24 09:01 HPI - Anesthesia Eval Consult details Narrative: 73yo F for Colonoscopy Per 2021 Pulmo note in [facility], s/p RUL Lobectomy 2018 for lung ca - no other info available [facility] Past Medical History Medical History Hx of cancer of lung Hypothyroid HTN (hypertension) HLD (hyperlipidemia) COPD (chronic obstructive pulmonary disease) Arthritis Anxiety Diverticular disease Surgical History Surgical History History of total hip replacement H/O colonoscopy Hx of wisdom tooth extraction Hx of inguinal hernia repair Hx of pneumonectomy History of bowel resection (08/2021) Social History Social History Are you a primary progressive care unit registered nurse to a significant other at home: No Do you presently have visiting nurse or other home services: No Patient Tobacco Use Status: Former Tobacco user Tobacco use type: Cigarette Years Smoked: 8 Smoked in Last 30 Days: No Use of substances other than those prescribed or required for medical reasons: No Have you been hit, kicked, punched, or otherwise hurt by someone within the past year? If so, by whom?: No Are you DNR?: No Advance Directives: No Advance Directives Information Provided: No Advance Directives on File: No Patient : No : No Poor oral hygiene: No Meds Allergies Allergy/AdvReac Type Severity Reaction Status Date / Time Sulfa (Sulfonamide Allergy Severe Rash Verified 08/04/24 08:01 Antibiotics) lisinopril Allergy Intermediate Cough Verified 08/04/24 08:01 polyethylene glycol 3350 Allergy Intermediate Gastrointestinal Verified 08/04/24 08:01 [From Miralax] Upset Home Medications ?Medication ?Instructions ?Recorded ?Confirmed ?Last Taken ?Type Bacillus coagulans-inulin 07/31/24 Unknown History albuterol sulfate 90 mcg/actuation 1 puff inhalation Q4H PRN 07/31/24 08/04/24 Unknown History aerosol inhaler Shortness Of Breath Or Wheezing atorvastatin 40 mg tablet 40 mg PO DAILY 07/31/24 08/04/24 Unknown History fluticasone propionate 50 1 spray intranasal Q12H 07/31/24 08/04/24 Unknown History mcg/actuation nasal spray,suspension hydrochlorothiazide 12.5 mg capsule 12.5 mg PO DAILY 07/31/24 08/04/24 08/03/24 History levothyroxine 75 mcg capsule 75 mcg PO DAILY 07/31/24 08/04/24 08/04/24 History valacyclovir 500 mg tablet 500 mg PO DAILY 07/31/24 08/04/24 Unknown History Exam Height,Weight and Vital Signs: Height 5 ft 6 in Weight 56.427 kg Assessment and Plan Assessment Anesthesia Assessment: Chart Reviewed Documented by User: Myrna Rios MD 08/04/24 08:47 [facility] Past Medical History Medical History Hx of cancer of lung Hypothyroid HTN (hypertension) HLD (hyperlipidemia) COPD (chronic obstructive pulmonary disease) Arthritis Anxiety Diverticular disease Family History Family history of problems with anesthesia: No Surgical History Surgical History History of total hip replacement H/O colonoscopy Hx of wisdom tooth extraction Hx of inguinal hernia repair Hx of pneumonectomy History of bowel resection (08/2021) History of Problems with Anesthesia: No Social History Social History Are you a primary progressive care unit registered nurse to a significant other at home: No Do you presently have visiting nurse or other home services: No Patient Tobacco Use Status: Former Tobacco user Tobacco use type: Cigarette Years Smoked: 8 Smoked in Last 30 Days: No Use of substances other than those prescribed or required for medical reasons: No Have you been hit, kicked, punched, or otherwise hurt by someone within the past year? If so, by whom?: No Are you DNR?: No Advance Directives: No Advance Directives Information Provided: No Advance Directives on File: No Patient : No : No Poor oral hygiene: No Meds Allergies Allergy/AdvReac Type Severity Reaction Status Date / Time Sulfa (Sulfonamide Allergy Severe Rash Verified 08/04/24 08:01 Antibiotics) lisinopril Allergy Intermediate Cough Verified 08/04/24 08:01 polyethylene glycol 3350 Allergy Intermediate Gastrointestinal Verified 08/04/24 08:01 [From Miralax] Upset Home Medications ?Medication ?Instructions ?Recorded ?Confirmed ?Last Taken ?Type Bacillus coagulans-inulin 07/31/24 Unknown History albuterol sulfate 90 mcg/actuation 1 puff inhalation Q4H PRN 07/31/24 08/04/24 Unknown History aerosol inhaler Shortness Of Breath Or Wheezing atorvastatin 40 mg tablet 40 mg PO DAILY 07/31/24 08/04/24 Unknown History fluticasone propionate 50 1 spray intranasal Q12H 07/31/24 08/04/24 Unknown History mcg/actuation nasal spray,suspension hydrochlorothiazide 12.5 mg capsule 12.5 mg PO DAILY 07/31/24 08/04/24 08/03/24 History levothyroxine 75 mcg capsule 75 mcg PO DAILY 07/31/24 08/04/24 08/04/24 History valacyclovir 500 mg tablet 500 mg PO DAILY 07/31/24 08/04/24 Unknown History Exam Airway Mallampati Class: II TM Dist: >3cm Neck ROM: Full Partial: Upper Heart: rrr Lungs: cta Assessment and Plan Assessment Anesthesia Assessment: Anesthesia Plan Discussed Final Anesthetic Review Family History of Problems with Anesthesia: No History of Problems with Anesthesia: No NPO: Yes ASA Class: III Final Preanesthetic Review: No Changes in Pt Med Stat, Meds/Allgs Chart Reviewed, Consent Obtained/Reviewed and Anes Risks/Benef Reviewed Patient Risk: Intermediate Procedure Risk: Low Anesthetic Plan Anesthetic Plan: MAC: Disposition: Standard PACU
[2024-08-04 08:13] VITALS: BP 127/79; PULSE 88; RESP 16; TEMP 36.6; O2SAT 99; BMI 19.9
[2024-08-04] MEDS: Lactated Ringers 1,000 ML 100 ML IVCONT (08:24)
--- NOTE | 2024-08-04 08:58 | MHC.SHP ---
Pre-Procedural Eval Section A - 24 Hr Update-Section A only Date of Service: 08/04/24 The patient is an INPATIENT: No Changes since office visit: No Cold of Flu in the past 2 weeks, No New Medical Problems, No Changes in Medication and No Patient answered all questions The patient has been examined within 24 hours of the surgical procedure. The History & Physical has been completed within 30 days and I have reviewed it.: Yes Section B - Complete if H&P > 30 days Chief Complaint: screening Allergies: Allergies Allergy/AdvReac Type Severity Reaction Status Date / Time Sulfa (Sulfonamide Allergy Severe Rash Verified 08/04/24 08:01 Antibiotics) lisinopril Allergy Intermediate Cough Verified 08/04/24 08:01 polyethylene glycol 3350 Allergy Intermediate Gastrointestinal Verified 08/04/24 08:01 [From Miralax] Upset Plan I have reviewed the history and physical and performed a pertinent physical examination on my patient. No changes have occurred unless specified. Time Spent With Patient Time: Total time managing care of this patient today ____ minutes.
[2024-08-04 09:31] VITALS: BP 117/71; PULSE 89; RESP 12; TEMP 36.6; O2SAT 97
[2024-08-04 09:44] VITALS: BP 133/78; PULSE 85; RESP 16; TEMP 36.3; O2SAT 100
--- NOTE | 2024-08-04 10:14 | OP_ITS ---
DATE OF SERVICE: 08/04/2024 SURGEON: Darvin Morgan MD INDICATIONS: Colon cancer screening. PREOPERATIVE DIAGNOSIS: POSTOPERATIVE DIAGNOSIS: PROCEDURE PERFORMED: Colonoscopy to the terminal ileum. ESTIMATED BLOOD LOSS: COMPLICATIONS: ANESTHESIA: Monitored anesthesia care. ASSISTANTS: SPECIMENS: DESCRIPTION OF PROCEDURE: A history and physical was performed. The risks and benefits of the procedure were explained to the patient. Informed consent was obtained. The patient was placed in the left lateral decubitus position. A digital rectal exam was performed and was found to be normal. The Olympus pediatric video colonoscope was introduced into the rectum and advanced to the cecum. The cecum was identified by transillumination, palpation, and identification of ileocecal valve. Examination was performed. The scope was removed. She tolerated the procedure well and was returned to recovery area in stable condition. FINDINGS: The terminal ileum was examined and appeared normal. The visualized colonic mucosa was normal. The quality of prep was good. No polyps were identified. There was a low anastomosis at about 15 cm from the anal verge with some staple material identified. There appeared to be a few diverticula in this vicinity. No polyps were seen. The anastomosis was widely patent. Retroflexed examination was normal. IMPRESSION: Normal colonoscopy. RECOMMENDATIONS: 1. Follow up as needed. 2. Repeat colonoscopy could be considered in 5 years because of family history. This is optional based on age. MD EMILY Cortes/ROBERT / [id number]
== END 2024-08-04 10:12 | disposition home or self-care (01) ==
PROVIDERS: PCP Internal Medicine; Visit Provider Internal Medicine Gastroenterology
PROC: 0DJD8ZZ Inspection of Lower Intestinal Tract, Via Natural or Artificial Opening Endoscopic (ICD-10-PCS; CPT 45378; principal; 2024-08-04 09:20)
DX: Z12.11 Encounter for screening for malignant neoplasm of colon (principal); Z80.0 Family history of malignant neoplasm of digestive organs; Z83.719 Family history of colon polyps, unspecified; Z90.49 Acquired absence of other specified parts of digestive tract; Z87.19 Personal history of other diseases of the digestive system; Z98.0 Intestinal bypass and anastomosis status; K57.30 Diverticulosis of large intestine without perforation or abscess without bleeding; K59.00 Constipation, unspecified; J44.9 Chronic obstructive pulmonary disease, unspecified; Z85.118 Personal history of other malignant neoplasm of bronchus and lung; Z90.2 Acquired absence of lung [part of]; E78.5 Hyperlipidemia, unspecified; E03.9 Hypothyroidism, unspecified; M19.90 Unspecified osteoarthritis, unspecified site; F41.9 Anxiety disorder, unspecified; Z79.51 Long term (current) use of inhaled steroids; Z79.899 Other long term (current) drug therapy; Z88.2 Allergy status to sulfonamides; Z88.8 Allergy status to other drugs, medicaments and biological substances
CPT/HCPCS: G0105; J2704